=== PATIENT | female | born 1935 ===

== ENCOUNTER 2018-04-06 13:35 | Inpatient (IN) | payer MEDICARE ==
[2018-04-06 13:47] VITALS: BMI 29.2
[2018-04-06] MEDS ORDERED: Sodium Chloride 0.9% 1,000 ML IV ONE (14:16)
[2018-04-06] MEDS ORDERED: Iohexol 240 (50 ml) PO ONE (14:16)
[2018-04-06 14:27] LABS: BASO # 0.1 K/uL (0.0-0.2); BASO % 0.4 % (0.0-2.0); EOS # 0.2 K/uL (0.0-0.7); EOS % 1.5 % (0.0-4.0); HEMOGLOBIN 7.7 g/dL (11.0-16.0); LYMPH # 1.6 K/uL (1.0-4.3); LYMPH % 9.8 % (20.0-40.0); MEAN CELL VOLUME 95.1 fL (81.0-99.0); MEAN CORPUSCULAR HEMOGLOBIN 31.8 pg (27.0-31.0); MEAN CORPUSCULAR HGB CONC 33.4 g/dL (33.0-37.0); MEAN PLATELET VOLUME 7.8 fL (7.2-11.7); MONO # 0.7 K/uL (0.0-0.8); MONO % 4.4 % (0.0-10.0); NEUT # 13.6 K/uL (1.8-7.0); NEUT % 83.9 % (50.0-75.0); PLATELET COUNT 357 K/uL (130-400); RBC 2.42 Mil/uL (3.80-5.20); RED CELL DISTRIBUTION WIDTH 14.5 % (11.5-14.5); WHITE BLOOD COUNT 16.2 K/uL (4.8-10.8)
--- NOTE | 2018-04-06 14:27 | C.PDOC ---
History Of Present Illness Pt is an 83 y/o female, with history of colon cancer, abdominal hernia, and hypertension, presents to ED complaining of constant upper abdominal pain (mid- epigastric) for the past 3 days, associated with vomiting and diarrhea. States she has difficulty eating but the pain subsides when she lays down. Patient states she takes pepto bismol for the pain but no relief. Pt also states that her CEA was recently elevated (8.5) and that she was scheduled to have a CT scan at [facility] tomorrow as part of a cancer work up. Otherwise she denies any fever, dysuria, or other physical complaints. PMD: Dr. Lott Oncologist: Dr. Guthrie Time Seen by Provider: 04/06/18 14:02 Chief Complaint (Nursing): Abdominal Pain History Per: Patient History/Exam Limitations: no limitations Onset/Duration Of Symptoms: Days Current Symptoms Are (Timing): Still Present Past Medical History Reviewed: Historical Data, Nursing Documentation, Vital Signs Vital Signs: Last Vital Signs Temp 97.6 F 04/06/18 13:47 Pulse Resp 20 04/06/18 13:47 BP 144/54 L 04/06/18 13:47 Pulse Ox - Medical History PMH: HTN, Rheumatoid Arthritis Other PMH: colon cancer - [facility] Procedures CLOSED ENDOSCOPIC BIOPSY OF LARGE INTESTINE (09/08/12) ENDOSCOPIC BIOPSY OF RECTUM (09/08/12) Family History: States: Other Other Family History: cancer - Social History Hx Tobacco Use: No (Former smoker--quit 9 yrs ago) Hx Alcohol Use: No Hx Substance Use: No - Immunization History Hx Tetanus Toxoid Vaccination: Yes Hx Influenza Vaccination: Yes Hx Pneumococcal Vaccination: Yes Review Of Systems Except As Marked, All Systems Reviewed And Found Negative. Constitutional: Negative for: Fever Gastrointestinal: Positive for: Vomiting, Abdominal Pain (Upper), Diarrhea Genitourinary: Negative for: Dysuria Physical Exam - Physical Exam Appears: Well, Non-toxic, No Acute Distress Skin: Normal Color, Warm, Dry, No Rash Head: Atraumatic, Normacephalic Eye(s): bilateral: Normal Inspection, PERRL, EOMI Ear(s): Bilateral: Normal Nose: Normal Oral Mucosa: Moist Tongue: Normal Appearing Lips: Normal Appearing Gingiva: Normal Appearing Throat: Normal Neck: Normal, Normal ROM Lymphatic: Deferred Chest: Symmetrical Cardiovascular: Rhythm Regular, No Murmur Respiratory: Normal Breath Sounds, No Rales, No Rhonchi, No Wheezing Gastrointestinal/Abdominal: Soft, Tenderness (midepigastric area), No Guarding, No Rebound Rectal: Deferred Back: No CVA Tenderness Extremity: Normal ROM Extremity: Bilateral: Atraumatic, Normal Color And Temperature, Normal ROM Neurological/Psych: Oriented x3, Normal Speech Gait: Steady ED Course And Treatment - Laboratory Results Result Diagrams: 04/06/18 14:20 04/06/18 14:20 - CT Scan/US CT Abd/Pel Other Rad Studies (CT/US): Read By Radiologist, Radiology Report Reviewed CT/US Interpretation: FINDINGS: LUNG BASES: There is extensive scarring of the lung bases. LIVER: There are multiple low density cystic appearing masses within the liver including the right and left lobes with the largest in the left lobe measuring 2.8 cm in largest right lobe approximately 1.7 cm. GALLBLADDER AND BILE DUCTS: Findings suggest a small gallstone or sludge within the gallbladder. PANCREAS: Unremarkable. SPLEEN: Unremarkable. ADRENAL GLANDS: Unremarkable. KIDNEYS, URETERS, AND BLADDER: Left renal cyst approximately 4.6 cm.. There is no hydronephrosis or hydroureter. No urinary calculi are seen. Enlarged uterus with large calcified fibroid. STOMACH AND BOWEL: There is marked thickening of the wall of the stomach with inflammatory or neoplastic process a possibility. APPENDIX: No evidence of acute appendicitis on CT examination. PERITONEUM: No free fluid. No free air. LYMPH NODES: No lymphadenopathy is evident. VASCULATURE: No evidence of abdominal aortic aneurysm. BONES: Grade 1 anterolisthesis of the L4-L5 level lumbar spine. Diffuse advanced hypertrophic degenerative change. IMPRESSION: Scarring in the lower lungs. Multiple cystic masses suspected within the liver. Possible small gallstones or sludge within the gallbladder. Marked thickening of the wall of the stomach which may be inflammatory or neoplastic in nature.. Left renal cys t. Calcified fibroid uterus. Grade 1 anterolisthesis L4-L5 level lumbar spine. Medical Decision Making Medical Decision Making: Initial Impression: Undifferentiated abdominal pain Initial Plan: --CT Abd/Pel --Bloodwork --Omnipaque --Pepcid --IV Fluids --Zofran --Urinalysis Progress notes: CT of abd abnormal and several labs abnormal. Case d/w with Dr. Lott (PMD) and he recommends admission to hospitalist. Pt endorses to Dr. Pulliam. Disposition - Disposition Disposition: HOME/ ROUTINE Disposition Time: 18:38 Condition: FAIR - Clinical Impression Clinical Impression: Abdominal pain, Anemia, Vomiting - Scribe Statement The provider has reviewed the documentation as recorded by the Carmenibe Ioana Romero Provider Attestation: All medical record entries made by the Carmenibe were at my direction and personally dictated by me. I have reviewed the chart and agree that the record accurately reflects my personal performance of the history, physical exam, m edical decision making, and the department course for this patient. I have also personally directed, reviewed, and agree with the discharge instructions and disposition. Decision To Admit - Pt Status Changed To: Hospital Disposition Of: Inpatient - Admit Certification Admit to Inpatient:: After my assessment, the patient will require hospitalization for at least two midnights. This is because of the severity of symptoms shown, intensity of services needed, and/or the medical risk in this p atient being treated as an outpatient. - InPatient: Physician Admission Certification:: Patient will need evaluation by GI; patient will need monitoring and possible transfusion - . Bed Request Type: Regular Admitting Physician: Erwin Yarbrough Patient Diagnosis: Abdominal pain, Anemia, Vomiting
[2018-04-06] MEDS ORDERED: Sodium Chloride 0.9% 1,000 ML ONE (14:35)
[2018-04-06 14:41] LABS: ALBUMIN 3.1 g/dL (3.5-5.0); ALT/SGPT 29 U/L (9-52); AST/SGOT 29 U/L (14-36); BLOOD UREA NITROGEN 27 mg/dL (7-17); CALCIUM 8.6 mg/dl (8.6-10.4); GFR NON-AFRICAN AMERICAN 53; LIPASE 32 U/L (23-300)
[2018-04-06 14:47] LABS: INR 1.3; PROTHROMBIN TIME 14.6 SECONDS (9.7-12.2)
[2018-04-06] MEDS ORDERED: Iohexol 240 (50 ml) ONE (14:51)
[2018-04-06 15:12] LABS: LYMPHOCYTE 13 % (20-40); MONOCYTE 2 % (0-10); NEUTROPHIL 85 % (50-75); PLATELET ESTIMATE NORMAL (NORMAL); TOTAL CELLS COUNTED 100
[2018-04-06 15:14] LABS: ANISOCYTOSIS SLIGHT; HYPOCHROMIC SLIGHT; LARGE PLATELETS PRESENT; POLYCHROMIC SLIGHT; TOXIC GRANULATION PRESENT
[2018-04-06 15:15] LABS: GIANT PLATELETS PRESENT
[2018-04-06] MEDS ORDERED: Iodixanol 320 MG/ML 100 ML BOTTLE IV ONE (16:46)
[2018-04-06 16:55] LABS: SQUAMOUS EPITHIAL < 1 /hpf (0-5); URINE BILIRUBIN NEGATIVE (NEGATIVE); URINE BLOOD NEGATIVE (NEGATIVE); URINE CLARITY Clear (Clear); URINE COLOR Straw (YELLOW); URINE GLUCOSE (UA) NORMAL (Normal); URINE LEUKOCYTE ESTERASE NEG Leu/uL (Negative); URINE PROTEIN NEGATIVE (NEGATIVE); URINE UROBILINOGEN NORMAL mg/dL (0.2-1.0)
[2018-04-06] MEDS ORDERED: Morphine 4 MG/ML VIAL ONE (18:17)
--- NOTE | 2018-04-06 21:14 | CP.PCM.HP ---
<Jamir Huston - Last Filed: 04/07/18 03:37> History of Present Illness - History of Present Illness History of Present Illness: PGY-1 H&P for Dr Matute service cc: vomiting and epigastric pain HPI: Patient is a 83 year old female with pmhx of colon ca, HTN, Rheumatoid Arthritis, abdominal hernia that presents to the ED for nausea and vomiting, as well as for diarrhea and epigastric pain that started 3 days ago. Patient states she was going to [employer] 3 days ago in a car when she felt stomach discomfort, with burping, and vomited one time. Patient did not noticed any blood in the vomit. Patient took 1 oz of milk of magnesia at home, and state she later developed several episodes of brown, nonbloody diarrhea that lasted for 2 days. Patient states diarrhea stopped yesterday after taking peptobismol, and patient had a normal bowel movement today. Patient admits to increasing pain in right hand, due to hx of Rheumatoid arthritis. Patient says she has been taking 8 pills of Naproxen of 220mg each, every 8 hours for the past 2-3 weeks and has recently changed to taking 8 pills of Naproxen every 4 hours. Patient admits to chest pain in the middle of the sternum area. Patient denies fever, chills, headache, dizziness, changes in vision, palpations, shortness of breath, dysuria, hematuria, rash, sick contacts or loss of appetite. Patient admits to 4-5 lbs of weight loss in the past month. PMD: [facility] Heme/Onc: Dr Guthrie ALL: milk protein and other unspecified types of protein (rash, eczema, psoriasis) Pmhx: HTN, Colon CA, Abdominal hernia x 3, Rheumatoid arthritis, Macular degeneration Shx: Colon resection (2008) Meds: naproxen 8 pills x 4 hours daily, Mulitvitamins, natural/herbal medicine for RA Social history: Former smoker ( 1 pack/day x 56 years) 9 years ago, social drinker, denies drug use, lives alone and does not currently work fmhx: CVA, CO (father), aunt (Colon CA) Present on Admission - Present on Admission Any Indicators Present on Admission: No Review of Systems - Review of Systems All systems: reviewed and no additional remarkable complaints except Review of Systems: as mentioned in HPI Past Patient History - Past Social History Smoking Status: Former Smoker - CARDIAC Hx Hypertension: Yes - HEMATOLOGICAL/ONCOLOGICAL Other/Comment: colon Ca - MUSCULOSKELETAL/RHEUMATOLOGICAL Hx Rheumatoid Arthritis: Yes - PSYCHIATRIC Hx Substance Use: No - SURGICAL HISTORY Hx Surgeries: Yes Other/Comment: colectomy - ANESTHESIA Hx Anesthesia: Yes Hx Anesthesia Reactions: No Meds Allergies/Adverse Reactions: Allergies Allergy/AdvReac Type Severity Reaction Status Date / Time No Known Allergies Allergy Verified 09/08/12 09:33 Physical Exam - Constitutional Appears: Non-toxic, No Acute Distress - Head Exam Head Exam: ATRAUMATIC, NORMAL INSPECTION, NORMOCEPHALIC - Eye Exam Eye Exam: EOMI, Normal appearance, PERRL Pupil Exam: NORMAL ACCOMODATION Additional comments: conjuctival pallor bilaterally - ENT Exam ENT Exam: Mucous Membranes Moist, Normal Exam Additional comments: brown spots on posterior tongue noticed - Neck Exam Neck exam: Positive for: Full Rom, Normal Inspection. Negative for: Lymphadenopathy, Tenderness, Thyromegaly - Respiratory Exam Respiratory Exam: Clear to Auscultation Bilateral, NORMAL BREATHING PATTERN. absent: Rales, Rhonchi, Wheezes, Respiratory Distress - Cardiovascular Exam Cardiovascular Exam: REGULAR RHYTHM, +S1, +S2 - GI/Abdominal Exam GI & Abdominal Exam: Normal Bowel Sounds, Soft, Tenderness (epigastric area, right upper quadrant ). absent: Distended - Rectal Exam Rectal Exam: Hemorrhoids. absent: Black Stool, Bloody Stool, Fecal Impaction Additional comments: external hemorrhoids - Extremities Exam Extremities exam: Positive for: full ROM, normal capillary refill, normal inspection. Negative for: calf tenderness, pedal edema, tenderness - Back Exam Back exam: FULL ROM, NORMAL INSPECTION. absent: paraspinal tenderness, rash noted - Neurological Exam Neurological exam: Alert, CN II-XII Intact, Oriented x3 - Psychiatric Exam Psychiatric exam: Normal Affect, Normal Mood - Skin Skin Exam: Dry, Intact, Normal Color, Warm Results - Vital Signs Recent Vital Signs: Last Vital Signs Temp 97.9 F 04/06/18 18:00 Pulse 86 04/06/18 19:59 Resp 14 04/06/18 19:59 BP 142/59 L 04/06/18 19:59 Pulse Ox 97 04/06/18 19:59 - Labs Result Diagrams: 04/06/18 14:20 04/06/18 14:20 Labs: Laboratory Results - last 24 hr 04/06/18 04/06/18 04/06/18 14:20 14:20 14:20 WBC 16.2 H RBC 2.42 L Hgb 7.7 L Hct 23.0 L MCV 95.1 MCH 31.8 H MCHC 33.4 RDW 14.5 Plt Count 357 MPV 7.8 Neut % (Auto) 83.9 H Lymph % (Auto) 9.[address] [place] % (Auto) 4.4 Eos % (Auto) 1.5 Baso % (Auto) 0.4 Neut # (Auto) 13.6 H Lymph # (Auto) 1.6 [place] # (Auto) 0.7 Eos # (Auto) 0.2 Baso # (Auto) 0.1 Neutrophils % (Manual) 85 H Lymphocytes % (Manual) 13 L Monocytes % (Manual) 2 Toxic Granulation Present Platelet Estimate Normal Large Platelets Present Giant Platelets Present Polychromasia Slight Hypochromasia (manual) Slight Anisocytosis (manual) Slight Macrocytosis (manual) Slight PT 14.6 H INR 1.3 APTT 32 Sodium 129 L Potassium 3.6 Chloride 94 L Carbon Dioxide 26 Anion Gap 12 BUN 27 H Creatinine 1.0 Est GFR ( Amer) > 60 Est GFR (Non-Af Amer) 53 Random Glucose 117 H Calcium 8.6 Total Bilirubin 0.5 AST 29 ALT 29 Alkaline Phosphatase 65 Total Creatine Kinase 117 Troponin I 0.0150 Total Protein 6.1 L Albumin 3.1 L Globulin 3.0 Albumin/Globulin Ratio 1.0 Lipase 32 Urine Color Urine Clarity Urine pH Ur Specific [place] Urine Protein Urine Glucose (UA) Urine Ketones Urine Blood Urine Nitrate Urine Bilirubin Urine Urobilinogen Ur Leukocyte Esterase Urine WBC (Auto) Urine RBC (Auto) Ur Squamous Epith Cells Blood Type Antibody Screen 04/06/18 04/06/18 16:47 17:01 WBC RBC Hgb Hct MCV MCH MCHC RDW Plt Count MPV Neut % (Auto) Lymph % (Auto) [place] % (Auto) Eos % (Auto) Baso % (Auto) Neut # (Auto) Lymph # (Auto) [place] # (Auto) Eos # (Auto) Baso # (Auto) Neutrophils % (Manual) Lymphocytes % (Manual) Monocytes % (Manual) Toxic Granulation Platelet Estimate Large Platelets Giant Platelets Polychromasia Hypochromasia (manual) Anisocytosis (manual) Macrocytosis (manual) PT INR APTT Sodium Potassium Chloride Carbon Dioxide Anion Gap BUN Creatinine Est GFR ( Amer) Est GFR (Non-Af Amer) Random Glucose Calcium Total Bilirubin AST ALT Alkaline Phosphatase Total Creatine Kinase Troponin I Total Protein Albumin Globulin Albumin/Globulin Ratio Lipase Urine Color Straw Urine Clarity Clear Urine pH 6.0 Ur Specific [place] 1.006 Urine Protein Negative Urine Glucose (UA) Normal Urine Ketones Negative Urine Blood Negative Urine Nitrate Negative Urine Bilirubin Negative Urine Urobilinogen Normal Ur Leukocyte Esterase Neg Urine WBC (Auto) < 1 Urine RBC (Auto) 1 Ur Squamous Epith Cells < 1 Blood Type O POSITIVE Antibody Screen Negative Assessment & Plan - Assessment and Plan (Free Text) Plan: epigastric pain with N/V/D, r/o Upper GI bleed 2/2 NSAID use vs Malignancy - CT Abd and Pelvis PO and IV contrast: Thickening wall of stomach of inflammatory vs neoplastic cause, multiple cystic masses within liver, gallstones or sludge,scarring lower lungs, calcified fibroid uterus - Lipase negative - at ED: Famotidine 10mg IVP, morphine 5mg IVP, Ondasetron 4mg IVP - Occult blood x2 - f/u - GI consult - Dr Ayan Dowd - help is appreciated - Heme/Onc Consult Dr Guthrie - Protonix drip - Morphine 2mg IVP Q4hr PRN for severe pain - Zofran 4mg IVP PRN for nausea - NS @ 75mls/hr Acute Anemia, r/o Upper GI bleed due to NSAID use - Hb 7.7, baseline [address] Guthrie - Hematocrit 23.0 - 1 PRBC unit ordered - Heme/Onc Consult Dr Guthrie - help is appreciated - GI Consult Dr Dowd - help is appreciated - f/u Ferritin, Iron, TIBC, B12 - f/u AM labs Hx of colon CA - Heme/Onc consult Dr Guthrie - latoya is appreciated - CEA levels - f/u hx of RA, chronic pain right hand - no NSAIDS - morphine 2mg IVP Q4hr PRN for severe pain hx of HTN - does not take any meds at home - BP at ED: 149/69 - continue to monitor BP Prophylaxis - DVT: SCDs - NPO Plan discussed with Dr Juju Huston, PGY-1 - Date & Time Date: 04/06/18 Time: 20:00 <Flavio Matute - Last Filed: 04/07/18 06:43> Results - Vital Signs Recent Vital Signs: Last Vital Signs Temp 98.2 F 04/07/18 04:32 Pulse 65 04/07/18 04:32 Resp 20 04/07/18 04:32 BP 101/56 L 04/07/18 04:32 Pulse Ox 94 L 04/07/18 00:05 - Labs Result Diagrams: 04/06/18 14:20 04/06/18 14:20 Labs: Laboratory Results - last 24 hr 04/06/18 04/06/18 04/06/18 14:20 14:20 14:20 WBC 16.2 H RBC 2.42 L Hgb 7.7 L Hct 23.0 L MCV 95.1 MCH 31.8 H MCHC 33.4 RDW 14.5 Plt Count 357 MPV 7.8 Neut % (Auto) 83.9 H Lymph % (Auto) 9.[address] % (Auto) 4.4 Eos % (Auto) 1.5 Baso % (Auto) 0.4 Neut # (Auto) 13.6 H Lymph # (Auto) 1.6 [place] # (Auto) 0.7 Eos # (Auto) 0.2 Baso # (Auto) 0.1 Neutrophils % (Manual) 85 H Lymphocytes % (Manual) 13 L Monocytes % (Manual) 2 Toxic Granulation Present Platelet Estimate Normal Large Platelets Present Giant Platelets Present Polychromasia Slight Hypochromasia (manual) Slight Anisocytosis (manual) Slight Macrocytosis (manual) Slight PT 14.6 H INR 1.3 APTT 32 Sodium 129 L Potassium 3.6 Chloride 94 L Carbon Dioxide 26 Anion Gap 12 BUN 27 H Creatinine 1.0 Est GFR ( Amer) > 60 Est GFR (Non-Af Amer) 53 Random Glucose 117 H Calcium 8.6 Iron TIBC % Saturation Ferritin Total Bilirubin 0.5 AST 29 ALT 29 Alkaline Phosphatase 65 Total Creatine Kinase 117 Troponin I 0.0150 Total Protein 6.1 L Albumin 3.1 L Globulin 3.0 Albumin/Globulin Ratio 1.0 Lipase 32 Carcinoembryonic Ag Vitamin B12 Urine Color Urine Clarity Urine pH Ur Specific [place] Urine Protein Urine Glucose (UA) Urine Ketones Urine Blood Urine Nitrate Urine Bilirubin Urine Urobilinogen Ur Leukocyte Esterase Urine WBC (Auto) Urine RBC (Auto) Ur Squamous Epith Cells Stool Occult Blood Blood Type Antibody Screen 04/06/18 04/06/18 04/06/18 16:47 17:01 22:54 WBC RBC Hgb Hct MCV MCH MCHC RDW Plt Count MPV Neut % (Auto) Lymph % (Auto) [place] % (Auto) Eos % (Auto) Baso % (Auto) Neut # (Auto) Lymph # (Auto) [place] # (Auto) Eos # (Auto) Baso # (Auto) Neutrophils % (Manual) Lymphocytes % (Manual) Monocytes % (Manual) Toxic Granulation Platelet Estimate Large Platelets Giant Platelets Polychromasia Hypochromasia (manual) Anisocytosis (manual) Macrocytosis (manual) PT INR APTT Sodium Potassium Chloride Carbon Dioxide Anion Gap BUN Creatinine Est GFR ( Amer) Est GFR (Non-Af Amer) Random Glucose Calcium Iron TIBC % Saturation Ferritin 54.9 Total Bilirubin AST ALT Alkaline Phosphatase Total Creatine Kinase Troponin I Total Protein Albumin Globulin Albumin/Globulin Ratio Lipase Carcinoembryonic Ag 2.4 Vitamin B12 693 Urine Color Straw Urine Clarity Clear Urine pH 6.0 Ur Specific [place] 1.006 Urine Protein Negative Urine Glucose (UA) Normal Urine Ketones Negative Urine Blood Negative Urine Nitrate Negative Urine Bilirubin Negative Urine Urobilinogen Normal Ur Leukocyte Esterase Neg Urine WBC (Auto) < 1 Urine RBC (Auto) 1 Ur Squamous Epith Cells < 1 Stool Occult Blood Blood Type O POSITIVE Antibody Screen Negative 04/06/18 04/07/18 22:54 02:48 WBC RBC Hgb Hct MCV MCH MCHC RDW Plt Count MPV Neut % (Auto) Lymph % (Auto) [place] % (Auto) Eos % (Auto) Baso % (Auto) Neut # (Auto) Lymph # (Auto) [place] # (Auto) Eos # (Auto) Baso # (Auto) Neutrophils % (Manual) Lymphocytes % (Manual) Monocytes % (Manual) Toxic Granulation Platelet Estimate Large Platelets Giant Platelets Polychromasia Hypochromasia (manual) Anisocytosis (manual) Macrocytosis (manual) PT INR APTT Sodium Potassium Chloride Carbon Dioxide Anion Gap BUN Creatinine Est GFR ( Amer) Est GFR (Non-Af Amer) Random Glucose Calcium Iron 39 TIBC 241 L % Saturation 16 L Ferritin Total Bilirubin AST ALT Alkaline Phosphatase Total Creatine Kinase Troponin I Total Protein Albumin Globulin Albumin/Globulin Ratio Lipase Carcinoembryonic Ag Vitamin B12 Urine Color Urine Clarity Urine pH Ur Specific [place] Urine Protein Urine Glucose (UA) Urine Ketones Urine Blood Urine Nitrate Urine Bilirubin Urine Urobilinogen Ur Leukocyte Esterase Urine WBC (Auto) Urine RBC (Auto) Ur Squamous Epith Cells Stool Occult Blood Blood Type Antibody Screen Assessment & Plan - Date & Time Date: 04/07/18 (I have seen and examined the patient. I agree with the findings and plan of care as documented by Dr. Huston. Patient with epigastric pain, history of Colon CA. Acute anemia. Consult to heme/onc and GI. Hemodynamically stable. Check stool for OB. Symptomatic treatment. Monitor for acute changes.) Time: 06:42 Attending/Attestation - Attestation I have personally seen and examined this patient.: Yes I have fully participated in the care of the patient.: Yes I have reviewed all pertinent clinical information: Yes
[2018-04-06] MEDS ORDERED: Pantoprazole 80 MG in Sodium Chloride 0.9% 100 ML IVP SCH (22:00)
[2018-04-06 23:24] LABS: IRON 39 ug/dL (37-170)
[2018-04-06 23:34] LABS: % IRON SATURATION 16 (20-55); TOTAL IRON BINDING CAPACITY 241 ug/dL (250-450)
[2018-04-06 23:43] LABS: FERRITIN 54.9 ng/mL
[2018-04-07] MEDS ORDERED: Sodium Chloride 0.9% 1,000 ML IV SCH (07:00)
--- NOTE | 2018-04-07 08:43 | CP.PCM.PN ---
Subjective - Date & Time of Evaluation Date of Evaluation: 04/07/18 Time of Evaluation: 08:39 - Subjective Subjective: PGY-1 Genoveva Shea D.O. Medicine progress note for Dr. Musa's service: Patient was seen and examined this morning. She is feeling much better since admission. She denies N/V, diarrhea, and epigastric pain. Currently, her only co mplaints are bilateral hand and leg swelling and pain with flexion of her hands. She saw her construction engineer, Dr. Burgess, recently but was hesitant to start a DMARD. She is s/p 1u pRBC; however, patient does not recall receiving it. Objective - Vital Signs/Intake and Output Vital Signs (last 24 hours): Temp Pulse Resp BP Pulse Ox 98.3 F 68 18 108/56 L 98 04/07/18 07:00 04/07/18 07:00 04/07/18 07:00 04/07/18 07:00 04/07/18 07:00 Intake and Output: 04/07/18 04/07/18 06:59 18:59 Intake Total 650 Balance 650 - Medications Medications: Current Medications Pantoprazole Sodium 80 mg/ (Sodium Chloride) 100 mls @ 10 mls/hr IV .Q10H DEMETRIUS Sodium Chloride (Sodium Chloride 0.9%) 1,000 mls @ 75 mls/hr IV .[id number] DEMETRIUS Morphine Sulfate (Morphine) 2 mg IVP Q4 PRN PRN Reason: Pain, severe (8-10) Last Admin: 04/06/18 23:00 Dose: 2 mg Ondansetron HCl (Zofran Inj) 4 mg IVP Q6 PRN PRN Reason: Nausea/Vomiting - Labs Labs: 04/06/18 14:20 04/06/18 14:20 PT 14.6 SECONDS (9.7-12.2) H 04/06/18 14:20 INR 1.3 04/06/18 14:20 APTT 32 SECONDS (21-34) 04/06/18 14:20 - Constitutional Appears: Non-toxic, No Acute Distress - Head Exam Head Exam: ATRAUMATIC, NORMAL INSPECTION - Eye Exam Eye Exam: EOMI, Normal appearance, PERRL - ENT Exam ENT Exam: Mucous Membranes Moist - Neck Exam Neck Exam: Normal Inspection - Respiratory Exam Respiratory Exam: Rales (b/l lower lung melendez), NORMAL BREATHING PATTERN. absent: Accessory Muscle Use, Respiratory Distress - Cardiovascular Exam Cardiovascular Exam: REGULAR RHYTHM, +S1, +S2, Murmur (holosystolic) - GI/Abdominal Exam GI & Abdominal Exam: Soft. absent: Distended, Tenderness - Rectal Exam Rectal Exam: Deferred - Extremities Exam Extremities Exam: Pedal Edema (2+ b/l). absent: Tenderness - Neurological Exam Neurological Exam: Alert, Awake, CN II-XII Intact, Oriented x3 - Psychiatric Exam Psychiatric exam: Normal Affect, Normal Mood - Skin Skin Exam: Dry, Intact, Normal Color, Pallor (conjunctival), Warm Assessment and Plan - Assessment and Plan (Free Text) Assessment: Patient is an 83 yo female with a history of colon CA and RA who presented with N/V/D x 3 days. Patient reported taking an increasing amount of Naproxen for her RA over the past few weeks. Patient found to be acutely anemic on admission. She received 1 u pRBC without response. She is scheduled for EGD tomorrow 04/08. Plan: Epigastic pain with nausea, vomiting, diarrhea, improving- suspect upper GI bleed 2/2 to NSAID use, r/o malignancy (h/o colon CA) - CT A/P: There is fairly significant wall thickening of the stomach. Findings could represent a gastritis or possibly gastric carcinoma. There is also small hiatal hernia with wall thickening of the distal esophagus that could all represent inflammation or neoplasia. Follow-up endoscopy recommended. Mild hepatomegaly with fatty infiltration. Numerous hepatic cysts. Qu estionable cholelithiasis.. Bilateral renal cyst. Mild wall thickening the descending and distal transverse colon with scattered colonic diverticula. Findings could be secondary to incomplete distention peristalsis, unopacified stool however and possibly muscular hypertrophy however the possibility of chronic inflammation not excluded. Clinical correlation recommended. Enlarged bulky fibroid uterus. Left adnexal cyst for which a pelvic ultrasound follow-up recommended. Paraseptal emphysematous changes with questionable concomitant fibrosis both lung bases. - Lipase wnl - FOBT negative x2 - Zofran 4 mg IV Q6H PRN - Protonix drip - Morphine 2 mg IV Q4H PRN - Discontinue IVF (LE edema, lung crackles) - Clear liquids - NPO after midnight for EGD tomorrow 04/08 - GI consulted ([place]) Anemia, acute- suspect upper GI bleed 2/2 to NSAID use, r/o malignancy - Hgb 7.7->7.6 s/p 1u pRBC - F/u CBC at 1PM- transfuse another unit if Hgb<8 - Iron, ferritin wnl - TIBC low (241), % sat low (16) - B12 wnl Holosystolic murmur- new to patient, also with b/l LE edema - Echo pending Hyponatremia, improving - Monitor BMP - Discontinue IVF Rheumatoid arthritis - Avoid NSAIDs - Morphine 2 mg IV Q4H PRN - Consider DMARD - Rheumatology consulted ([facility]) H/o colon CA - CEA wnl (2.4) - Hem/onc consulted ([place]) Ppx: VTE: SCDs, chemical anticoag contraindicated due to acute anemia GI: PTX drip Code status: full code Case was discussed with attending, Dr. Musa.
[2018-04-07 09:03] LABS: BASO # 0.1 K/uL (0.0-0.2); BASO % 0.5 % (0.0-2.0); EOS # 0.5 K/uL (0.0-0.7); EOS % 4.6 % (0.0-4.0); HEMOGLOBIN 7.6 g/dL (11.0-16.0); LYMPH # 1.4 K/uL (1.0-4.3); LYMPH % 13.3 % (20.0-40.0); MEAN CELL VOLUME 93.8 fL (81.0-99.0); MEAN CORPUSCULAR HEMOGLOBIN 32.3 pg (27.0-31.0); MEAN CORPUSCULAR HGB CONC 34.4 g/dL (33.0-37.0); MEAN PLATELET VOLUME 8.1 fL (7.2-11.7); MONO # 0.7 K/uL (0.0-0.8); MONO % 6.9 % (0.0-10.0); NEUT # 7.8 K/uL (1.8-7.0); NEUT % 74.7 % (50.0-75.0); NRBC % 0.1 % (0.0-2.0); RBC 2.36 Mil/uL (3.80-5.20); RED CELL DISTRIBUTION WIDTH 14.8 % (11.5-14.5); WHITE BLOOD COUNT 10.4 K/uL (4.8-10.8)
[2018-04-07 09:24] LABS: ALBUMIN 2.5 g/dL (3.5-5.0); ALT/SGPT 27 U/L (9-52); AST/SGOT 20 U/L (14-36); BLOOD UREA NITROGEN 18 mg/dL (7-17); GFR NON-AFRICAN AMERICAN 53
--- NOTE | 2018-04-07 09:39 | RAD ---
Date of service: 04/06/2018 HISTORY: High WBC r/o infiltrate COMPARISON: Abdomen pelvis CT 04/06/2018, 3 p.m.. TECHNIQUE: Chest PA and lateral FINDINGS: LUNGS: Extensive bilateral pulmonary changes are identified. Diffuse reticular nodular changes bilaterally suspicious for interstitial pulmonary disease, apparently chronic in nature as compared prior lung base sections from abdomen pelvis CT 04/06/2018. PLEURA: No significant pleural effusion identified. No pneumothorax apparent. CARDIOVASCULAR: No aortic atherosclerotic calcification present. Cardiac silhouette is obscured by pulmonary disease at the left base. No pulmonary vascular congestion. OSSEOUS STRUCTURES: No significant abnormalities. VISUALIZED UPPER ABDOMEN: Normal. OTHER FINDINGS: None. IMPRESSION: Chronic interstitial lung disease identified bilaterally without definite alveolitis identified on acute basis. No pleural effusion or pneumothorax appreciable.
--- NOTE | 2018-04-07 11:23 | CT ---
Date of service: 04/06/2018 PROCEDURE: CT Abdomen and Pelvis with contrast HISTORY: Midepigastric pain N/V Hx colon CA COMPARISON: No prior study available for comparison.. TECHNIQUE: Contiguous helical/transaxial sections of the abdomen. Pelvis performed in standard fashion following oral and intravenous injection of approximately 100 cc Visipaque 320 contrast material. Additional 2D sagittal and coronal reformats generated. Radiation dose: Total exam DLP = 547.51 mGy-cm. This CT exam was performed using one or more of the following dose reduction techniques: Automated exposure control, adjustment of the mA and/or kV according to patient size, and/or use of iterative reconstruction technique. FINDINGS: LOWER THORAX: Heart size is within range of normal. No significant pericardial effusion. There are scarring and peripheral cystic honeycombing changes seen both lung bases. Findings may represent paraseptal emphysema and/or interstitial fibrosis of with areas of irregular scarring. No effusion or basilar pneumothorax. Tiny hiatal hernia. There is wall thickening of the distal esophagus that could be due to protrusion gastric mucosa however esophagitis or other intrinsic/invasive wall lesion not excluded. Recommend follow-up endoscopy. LIVER: Enlarged measuring the liver is mildly enlarged measuring over 19 cm in CC dimension. Mild diffuse fatty hepatic infiltration. Multiple varying sized rounded low-attenuation lesions are seen scattered throughout the hepatic parenchyma the largest of which are compatible with hepatic cysts. Note that some of the smaller lesions are too small to characterize though may also represent a cyst or possibly hemangiomas. Follow-up at interval recommended given the patient's history of colon carcinoma the to exclude the possibility of a small early metastatic lesions.. If indicated, PET-CT scan could be performed. No gross intrahepatic biliary ductal dilatation. GALLBLADDER AND BILE DUCTS: Gallbladder is physiologically distended. Questionable intraluminal gallbladder calculi common bile duct is slightly dilated. PANCREAS: Pancreas appears slightly atrophic and fatty replaced. No obvious pancreatic masses collections or calcifications.. SPLEEN: Spleen exhibits normal size and attenuation pattern without mass collection or calcification.. ADRENALS: No adrenal lesions are identified.. KIDNEYS AND URETERS: Kidneys demonstrate symmetric nephrograms. No evidence of nephrolithiasis or hydronephrosis.. There are several low-attenuation lesions seen scattered throughout the right kidney which are too small to characterize though probably represent renal cysts. Follow-up ultrasound could confirm. There is a large partially exophytic cyst seen arising from the posterior aspect lower pole left kidney measuring approximately 4.7 cm. VASCULATURE: Unremarkable. No aortic aneurysm. Mild aortic atherosclerotic calcification or mural plaque present. BOWEL: Evaluation of the bowel is limited due to incomplete opacification. There is wall thickening of the stomach particularly prominent city constable in the mid and distal body. Follow-up endoscopy is recommended to exclude the possibility of a gastritis or gastric carcinoma.. The visualized loops of small bowel exhibit normal contour and caliber. No evidence of acute mechanical small bowel obstruction. Oral contrast material is seen within the large bowel extending to the level of the distal sigmoid. Few scattered colonic diverticula noted along the descending colon. Slight irregular wall thickening of the distal transverse and descending colon noted as well. Rule out chronic on APPENDIX: Suspect postoperative appendectomy changes. Clinical correlation with history recommended. PERITONEUM: Unremarkable. No free fluid. No free air. LYMPH NODES: Unremarkable. No enlarged lymph nodes. BLADDER: Urinary bladder physiologically distended. No evidence of intraluminal urinary bladder calculi. REPRODUCTIVE: Uterus is enlarged with a large midbody confluent area of granular calcifications consistent with calcified fibroid. There is also a left-sided adnexal cyst that measures approximately 2.6 x 2.2 cm. Follow-up pelvic ultrasound could be performed for further evaluation.. Findings could be secondary to incomplete distention and peristalsis as well as unopacified bowel however possibility of muscular hypertrophy due to chronic inflammation not excluded. Clinical correlation recommended. BONES: Multilevel degenerative spondylosis of the lower thoracic and lumbar spine. Slight anterior subluxation L4 over L5. No acute compression fractures no retropulsed fragments. OTHER FINDINGS: None. IMPRESSION: There is fairly significant wall thickening of the stomach. Findings could represent a gastritis or possibly gastric carcinoma. There is also small hiatal hernia with wall thickening of the distal esophagus that could all represent inflammation or neoplasia. Follow-up endoscopy recommended. Mild hepatomegaly with fatty infiltration. Numerous hepatic cysts. Questionable cholelithiasis.. Bilateral renal cyst. Mild wall thickening the descending and distal transverse colon with scattered colonic diverticula. Findings could be secondary to incomplete distention peristalsis, unopacified stool however and possibly muscular hypertrophy however the possibility of chronic inflammation not excluded. Clinical correlation recommended. Enlarged bulky fibroid uterus. Left adnexal cyst for which a pelvic ultrasound follow-up recommended... Paraseptal emphysematous changes with questionable concomitant fibrosis both lung bases See above discussion for additional details and findings. This report was placed in PA review folder for follow up.
[2018-04-07] MEDS: Pantoprazole 80 MG in Sodium Chloride 0.9% 100 ML IV SCH ×2 (12:25→20:48)
--- NOTE | 2018-04-07 15:34 | CP.PCM.CON ---
History of Present Illness - History of Present Illness History of Present Illness: History from the patient and the chart PI: Patient is a 83 year old female with pmhx of colon ca ( Stage I colon cancer) 2007, HTN, Rheumatoid Arthritis, abdominal hernia that presents to the ED for nausea and vomiting, as well as for diarrhea and epigastric pain that started 3 days ago. Patient states she was going to [employer] 3 days ago in a car when she felt stomach discomfort, with burping, and vomited one time. Patie nt did not noticed any blood in the vomit. Patient took 1 oz of milk of magnesia at home, and state she later developed several episodes of brown, non bloody diarrhea that lasted for 2 days. Patient states diarrhea stopped yesterday after taking peptobismol, and patient had a normal bowel movement today. Patient admits to increasing pain in right hand, due to hx of Rheumatoid arthritis. Patient says she has been taking 8 pills of Naproxen of 220mg each, every 8 hours for the past 2-3 weeks and has recently changed to taking 8 pills of Naproxen every 4 hours. Patient admits to chest pain in the middle of the sternum area. Patient denies fever, chills, headache, dizziness, changes in vision, palpations, shortness of breath, dysuria, hematuria, rash, sick contacts or loss of appetite. Patient admits to 4-5 lbs of weight loss in the past month and fatigue with NIELSEN for the [ast two weeks. PMD: Oren Heme/Onc: Palathingal ALL: milk protein and other unspecified types of protein (rash, eczema, psoriasis) Pmhx: HTN, Colon CA, Abdominal hernia x 3, Rheumatoid arthritis, Macular degeneration Shx: Colon resection (2008) Meds: naproxen 8 pills x 4 hours daily, Mulitvitamins, natural/herbal medicine for RA Social history: Former smoker ( 1 pack/day x 56 years) 9 years ago, social miquel spear, denies drug use, lives alone and does not currently work fmhx: CVA, MS (father), aunt (Colon CA) Past Patient History - Past Medical History & Family History Past Medical History?: Yes - Past Social History Smoking Status: Former Smoker - CARDIAC Hx Hypertension: Yes - PULMONARY Hx Respiratory Disorders: No - NEUROLOGICAL Hx Neurological Disorder: No - HEENT Hx HEENT Problems: Yes Hx Deafness: (hard of hearing bilateral ears) - RENAL Hx Chronic Kidney Disease: No - ENDOCRINE/METABOLIC Hx Endocrine Disorders: No - HEMATOLOGICAL/ONCOLOGICAL Other/Comment: colon Ca - INTEGUMENTARY Hx Dermatological Problems: No - MUSCULOSKELETAL/RHEUMATOLOGICAL Hx Rheumatoid Arthritis: Yes - GASTROINTESTINAL Hx Gastrointestinal Disorders: No - GENITOURINARY/GYNECOLOGICAL Hx Genitourinary Disorders: No - PSYCHIATRIC Hx Substance Use: No - SURGICAL HISTORY Hx Surgeries: Yes Other/Comment: colectomy - ANESTHESIA Hx Anesthesia: Yes Hx Anesthesia Reactions: No Meds Allergies/Adverse Reactions: Allergies Allergy/AdvReac Type Severity Reaction Status Date / Time No Known Allergies Allergy Verified 09/08/12 09:33 - Medications Medications: Current Medications Pantoprazole Sodium 80 mg/ (Sodium Chloride) 100 mls @ 10 mls/hr IV .Q10H [facility] Last Admin: 04/07/18 12:25 Dose: 10 mls/hr Sodium Chloride (Sodium Chloride 0.9%) 1,000 mls @ 75 mls/hr IV .[id number] [facility] Last Admin: 04/07/18 08:53 Dose: 75 mls/hr Morphine Sulfate (Morphine) 2 mg IVP Q4 PRN PRN Reason: Pain, severe (8-10) Last Admin: 04/06/18 23:00 Dose: 2 mg Ondansetron HCl (Zofran Inj) 4 mg IVP Q6 PRN PRN Reason: Nausea/Vomiting Results - Vital Signs Recent Vital Signs: Last Vital Signs Temp 98.3 F 04/07/18 07:00 Pulse 68 04/07/18 07:00 Resp 18 04/07/18 07:00 BP 108/56 L 04/07/18 07:00 Pulse Ox 98 04/07/18 07:00 - Labs Result Diagrams: 04/07/18 17:33 04/07/18 08:49 Labs: Laboratory Results - last 24 hr 04/06/18 04/06/18 04/06/18 16:47 17:01 22:54 WBC RBC Hgb Hct MCV MCH MCHC RDW Plt Count MPV Neut % (Auto) Lymph % (Auto) Colbert % (Auto) Eos % (Auto) Baso % (Auto) Neut # (Auto) Lymph # (Auto) Colbert # (Auto) Eos # (Auto) Baso # (Auto) Sodium Potassium Chloride Carbon Dioxide Anion Gap BUN Creatinine Est GFR ( Amer) Est GFR (Non-Af Amer) Random Glucose Calcium Phosphorus Magnesium Iron TIBC % Saturation Ferritin 54.9 Total Bilirubin AST ALT Alkaline Phosphatase Total Protein Albumin Globulin Albumin/Globulin Ratio Carcinoembryonic Ag 2.4 Vitamin B12 693 Urine Color Straw Urine Clarity Clear Urine pH 6.0 Ur Specific [place] 1.006 Urine Protein Negative Urine Glucose (UA) Normal Urine Ketones Negative Urine Blood Negative Urine Nitrate Negative Urine Bilirubin Negative Urine Urobilinogen Normal Ur Leukocyte Esterase Neg Urine WBC (Auto) < 1 Urine RBC (Auto) 1 Ur Squamous Epith Cells < 1 Stool Occult Blood Blood Type O POSITIVE Antibody Screen Negative 04/06/18 04/07/18 04/07/18 22:54 02:48 08:49 WBC 10.4 RBC 2.36 L Hgb 7.6 L Hct 22.2 L MCV 93.8 MCH 32.3 H MCHC 34.4 RDW 14.8 H Plt Count 305 MPV 8.1 Neut % (Auto) 74.7 Lymph % (Auto) 13.3 L Colbert % (Auto) 6.9 Eos % (Auto) 4.6 H Baso % (Auto) 0.5 Neut # (Auto) 7.8 H Lymph # (Auto) 1.4 Colbert # (Auto) 0.7 Eos # (Auto) 0.5 Baso # (Auto) 0.1 Sodium Potassium Chloride Carbon Dioxide Anion Gap BUN Creatinine Est GFR ( Amer) Est GFR (Non-Af Amer) Random Glucose Calcium Phosphorus Magnesium Iron 39 TIBC 241 L % Saturation 16 L Ferritin Total Bilirubin AST ALT Alkaline Phosphatase Total Protein Albumin Globulin Albumin/Globulin Ratio Carcinoembryonic Ag Vitamin B12 Urine Color Urine Clarity Urine pH Ur Specific [place] Urine Protein Urine Glucose (UA) Urine Ketones Urine Blood Urine Nitrate Urine Bilirubin Urine Urobilinogen Ur Leukocyte Esterase Urine WBC (Auto) Urine RBC (Auto) Ur Squamous Epith Cells Stool Occult Blood Blood Type Antibody Screen 04/07/18 08:49 WBC RBC Hgb Hct MCV MCH MCHC RDW Plt Count MPV Neut % (Auto) Lymph % (Auto) Colbert % (Auto) Eos % (Auto) Baso % (Auto) Neut # (Auto) Lymph # (Auto) Colbert # (Auto) Eos # (Auto) Baso # (Auto) Sodium 131 L Potassium 3.9 Chloride 101 Carbon Dioxide 24 Anion Gap 10 BUN 18 H Creatinine 1.0 Est GFR ( Amer) > 60 Est GFR (Non-Af Amer) 53 Random Glucose 80 Calcium 8.0 L Phosphorus 2.5 Magnesium 2.2 Iron TIBC % Saturation Ferritin Total Bilirubin 0.3 AST 20 ALT 27 Alkaline Phosphatase 54 Total Protein 5.0 L Albumin 2.5 L Globulin 2.6 Albumin/Globulin Ratio 1.0 Carcinoembryonic Ag Vitamin B12 Urine Color Urine Clarity Urine pH Ur Specific [place]ason Urine Protein Urine Glucose (UA) Urine Ketones Urine Blood Urine Nitrate Urine Bilirubin Urine Urobilinogen Ur Leukocyte Esterase Urine WBC (Auto) Urine RBC (Auto) Ur Squamous Epith Cells Stool Occult Blood Blood Type Antibody Screen Assessment & Plan (1) Anemia Assessment and Plan: 83 yo woman with history of colon cancer, Stage I, FAZAL, admitted with vomiting, tarry stool, severe fatigue for the past 2-3 weeks, abdominal pain, found to have severe anemia. Her baseline hemoglobin is 14, so would recommend transfusing 2-3 units of blood, especially if the concern is for ongoing bleeding Status: Acute
--- NOTE | 2018-04-07 15:36 | CP.PCM.CON ---
History of Present Illness - History of Present Illness History of Present Illness: GI Service Consult cc: anemia, epigastric pain HPI: 83 yr old woman admitted with epigastric pain, NSAID use, vomiting, Hgb 7- unchanged after transfusion [address]- abnormal thickening of stomach + liver lesions (cysts, hemangiomas). H/O colon cancer s/p resection 9 years ago, followed by Dr Guthrie. Last colonoscopy 5 years ago. CEA rising and was to have PET today Review of Systems - Constitutional Constitutional: absent: Fever - EENT Eyes: absent: Change in Vision - Cardiovascular Cardiovascular: Chest Pain - Respiratory Respiratory: Dyspnea. absent: Cough - Gastrointestinal Gastrointestinal: Abdominal Pain. absent: Melena - Genitourinary Genitourinary: absent: Change in Urinary Stream - Musculoskeletal Musculoskeletal: Back Pain, Joint Swelling - Integumentary Integumentary: absent: Jaundice - Neurological Neurological: absent: Abnormal Hearing - Psychiatric Psychiatric: absent: Behavioral Changes, Depression Past Patient History - Past Medical History & Family History Past Medical History?: Yes - Past Social History Smoking Status: Former Smoker - CARDIAC Hx Hypertension: Yes - PULMONARY Hx Respiratory Disorders: No - NEUROLOGICAL Hx Neurological Disorder: No - HEENT Hx HEENT Problems: Yes Hx Deafness: (hard of hearing bilateral ears) - RENAL Hx Chronic Kidney Disease: No - ENDOCRINE/METABOLIC Hx Endocrine Disorders: No - HEMATOLOGICAL/ONCOLOGICAL Other/Comment: colon Ca - INTEGUMENTARY Hx Dermatological Problems: No - MUSCULOSKELETAL/RHEUMATOLOGICAL Hx Rheumatoid Arthritis: Yes - GASTROINTESTINAL Hx Gastrointestinal Disorders: No - GENITOURINARY/GYNECOLOGICAL Hx Genitourinary Disorders: No - PSYCHIATRIC Hx Substance Use: No - SURGICAL HISTORY Hx Surgeries: Yes Other/Comment: colectomy - ANESTHESIA Hx Anesthesia: Yes Hx Anesthesia Reactions: No Meds Allergies/Adverse Reactions: Allergies Allergy/AdvReac Type Severity Reaction Status Date / Time No Known Allergies Allergy Verified 09/08/12 09:33 - Medications Medications: Current Medications Pantoprazole Sodium 80 mg/ (Sodium Chloride) 100 mls @ 10 mls/hr IV .Q10H [facility] Last Admin: 04/07/18 12:25 Dose: 10 mls/hr Sodium Chloride (Sodium Chloride 0.9%) 1,000 mls @ 75 mls/hr IV .[id number] [facility] Last Admin: 04/07/18 08:53 Dose: 75 mls/hr Morphine Sulfate (Morphine) 2 mg IVP Q4 PRN PRN Reason: Pain, severe (8-10) Last Admin: 04/06/18 23:00 Dose: 2 mg Ondansetron HCl (Zofran Inj) 4 mg IVP Q6 PRN PRN Reason: Nausea/Vomiting Physical Exam - Constitutional Appears: Well, No Acute Distress - Head Exam Head Exam: NORMOCEPHALIC - Eye Exam Eye Exam: absent: Scleral icterus - ENT Exam ENT Exam: Normal Exam - Neck Exam Neck exam: Positive for: Normal Inspection - Respiratory Exam Respiratory Exam: Clear to Auscultation Bilateral - Cardiovascular Exam Cardiovascular Exam: REGULAR RHYTHM - GI/Abdominal Exam GI & Abdominal Exam: Soft. absent: Mass, Organomegaly, Tenderness - Rectal Exam Rectal Exam: Deferred - Extremities Exam Additional comments: Right arm soft cast, swelling of hands - Back Exam Back exam: NORMAL INSPECTION - Neurological Exam Neurological exam: Alert, Oriented x3 - Psychiatric Exam Psychiatric exam: Normal Affect, Normal Mood Results - Vital Signs Recent Vital Signs: Last Vital Signs Temp 98.3 F 04/07/18 07:00 Pulse 68 04/07/18 07:00 Resp 18 04/07/18 07:00 BP 108/56 L 04/07/18 07:00 Pulse Ox 98 04/07/18 07:00 - Labs Result Diagrams: 04/07/18 08:49 04/07/18 08:49 Labs: Laboratory Results - last 24 hr 04/06/18 04/06/18 04/06/18 16:47 17:01 22:54 WBC RBC Hgb Hct MCV MCH MCHC RDW Plt Count MPV Neut % (Auto) Lymph % (Auto) Colbert % (Auto) Eos % (Auto) Baso % (Auto) Neut # (Auto) Lymph # (Auto) Colbert # (Auto) Eos # (Auto) Baso # (Auto) Sodium Potassium Chloride Carbon Dioxide Anion Gap BUN Creatinine Est GFR ( Amer) Est GFR (Non-Af Amer) Random Glucose Calcium Phosphorus Magnesium Iron TIBC % Saturation Ferritin 54.9 Total Bilirubin AST ALT Alkaline Phosphatase Total Protein Albumin Globulin Albumin/Globulin Ratio Carcinoembryonic Ag 2.4 Vitamin B12 693 Urine Color Straw Urine Clarity Clear Urine pH 6.0 Ur Specific [place] 1.006 Urine Protein Negative Urine Glucose (UA) Normal Urine Ketones Negative Urine Blood Negative Urine Nitrate Negative Urine Bilirubin Negative Urine Urobilinogen Normal Ur Leukocyte Esterase Neg Urine WBC (Auto) < 1 Urine RBC (Auto) 1 Ur Squamous Epith Cells < 1 Stool Occult Blood Blood Type O POSITIVE Antibody Screen Negative 04/06/18 04/07/18 04/07/18 22:54 02:48 08:49 WBC 10.4 RBC 2.36 L Hgb 7.6 L Hct 22.2 L MCV 93.8 MCH 32.3 H MCHC 34.4 RDW 14.8 H Plt Count 305 MPV 8.1 Neut % (Auto) 74.7 Lymph % (Auto) 13.3 L Colbert % (Auto) 6.9 Eos % (Auto) 4.6 H Baso % (Auto) 0.5 Neut # (Auto) 7.8 H Lymph # (Auto) 1.4 Colbert # (Auto) 0.7 Eos # (Auto) 0.5 Baso # (Auto) 0.1 Sodium Potassium Chloride Carbon Dioxide Anion Gap BUN Creatinine Est GFR ( Amer) Est GFR (Non-Af Amer) Random Glucose Calcium Phosphorus Magnesium Iron 39 TIBC 241 L % Saturation 16 L Ferritin Total Bilirubin AST ALT Alkaline Phosphatase Total Protein Albumin Globulin Albumin/Globulin Ratio Carcinoembryonic Ag Vitamin B12 Urine Color Urine Clarity Urine pH Ur Specific [place] Urine Protein Urine Glucose (UA) Urine Ketones Urine Blood Urine Nitrate Urine Bilirubin Urine Urobilinogen Ur Leukocyte Esterase Urine WBC (Auto) Urine RBC (Auto) Ur Squamous Epith Cells Stool Occult Blood Blood Type Antibody Screen 04/07/18 08:49 WBC RBC Hgb Hct MCV MCH MCHC RDW Plt Count MPV Neut % (Auto) Lymph % (Auto) Colbert % (Auto) Eos % (Auto) Baso % (Auto) Neut # (Auto) Lymph # (Auto) Colbert # (Auto) Eos # (Auto) Baso # (Auto) Sodium 131 L Potassium 3.9 Chloride 101 Carbon Dioxide 24 Anion Gap 10 BUN 18 H Creatinine 1.0 Est GFR ( Amer) > 60 Est GFR (Non-Af Amer) 53 Random Glucose 80 Calcium 8.0 L Phosphorus 2.5 Magnesium 2.2 Iron TIBC % Saturation Ferritin Total Bilirubin 0.3 AST 20 ALT 27 Alkaline Phosphatase 54 Total Protein 5.0 L Albumin 2.5 L Globulin 2.6 Albumin/Globulin Ratio 1.0 Carcinoembryonic Ag Vitamin B12 Urine Color Urine Clarity Urine pH Ur Specific [place] Urine Protein Urine Glucose (UA) Urine Ketones Urine Blood Urine Nitrate Urine Bilirubin Urine Urobilinogen Ur Leukocyte Esterase Urine WBC (Auto) Urine RBC (Auto) Ur Squamous Epith Cells Stool Occult Blood Blood Type Antibody Screen Assessment & Plan - Assessment and Plan (Free Text) Assessment: Abdominal pain/gastritis- NSAID use, abnl stomach on CT- Rec: PPI, EGD H/O Colon CA- rising CEA. Followed by Dr Guthrie. No obvious metastatic dis on CT. Pt to have outpt PET previously arranged by Dr Guthrie Anemia- normocytic + positive stool OB- recommend EGD - Date & Time Date: 04/07/18 Time: 15:40
[2018-04-07 17:41] LABS: BASO % 0.5 % (0.0-2.0); EOS # 0.4 K/uL (0.0-0.7); EOS % 4.1 % (0.0-4.0); HEMOGLOBIN 7.7 g/dL (11.0-16.0); LYMPH # 1.4 K/uL (1.0-4.3); LYMPH % 13.4 % (20.0-40.0); MEAN CELL VOLUME 92.6 fL (81.0-99.0); MEAN CORPUSCULAR HEMOGLOBIN 31.3 pg (27.0-31.0); MEAN CORPUSCULAR HGB CONC 33.8 g/dL (33.0-37.0); MEAN PLATELET VOLUME 7.8 fL (7.2-11.7); MONO # 0.7 K/uL (0.0-0.8); MONO % 6.6 % (0.0-10.0); NEUT # 8.1 K/uL (1.8-7.0); NEUT % 75.4 % (50.0-75.0); NRBC % 0.1 % (0.0-2.0); RBC 2.47 Mil/uL (3.80-5.20); RED CELL DISTRIBUTION WIDTH 14.9 % (11.5-14.5); WHITE BLOOD COUNT 10.7 K/uL (4.8-10.8)
[2018-04-08] MEDS: Pantoprazole 80 MG in Sodium Chloride 0.9% 100 ML IV SCH ×2 (05:35→17:17)
--- NOTE | 2018-04-08 07:37 | CP.PCM.PN ---
Subjective - Date & Time of Evaluation Date of Evaluation: 04/08/18 Time of Evaluation: 07:36 - Subjective Subjective: PGY-1 Genoveva Shea D.O. Medicine progress note for Dr. Musa's service: Patient was seen and examined this morning. Her nephew and his were at bedside. Patient states she is feeling well. Denies abdominal pain. She does admit to black stools; Denies diarrhea or constipation. She is NPO for EGD today. Reiterated to patient and family to avoid NSAIDS. Objective - Vital Signs/Intake and Output Vital Signs (last 24 hours): Temp Pulse Resp BP Pulse Ox 97.9 F 77 20 140/70 95 04/08/18 04:56 04/08/18 04:56 04/08/18 04:56 04/08/18 04:56 04/08/18 00:29 Intake and Output: 04/08/18 04/08/18 06:59 18:59 Intake Total 1085 Output Total 1 Balance 1084 - Medications Medications: Current Medications Pantoprazole Sodium 80 mg/ (Sodium Chloride) 100 mls @ 10 mls/hr IV .Q10H [facility] Last Admin: 04/08/18 05:35 Dose: Not Given Morphine Sulfate (Morphine) 2 mg IVP Q4 PRN PRN Reason: Pain, severe (8-10) Last Admin: 04/08/18 00:20 Dose: 2 mg Ondansetron HCl (Zofran Inj) 4 mg IVP Q6 PRN PRN Reason: Nausea/Vomiting - Labs Labs: 04/07/18 17:33 04/07/18 08:49 PT 14.6 SECONDS (9.7-12.2) H 04/06/18 14:20 INR 1.3 04/06/18 14:20 APTT 32 SECONDS (21-34) 04/06/18 14:20 - Constitutional Appears: Non-toxic, No Acute Distress - Head Exam Head Exam: ATRAUMATIC, NORMAL INSPECTION - Eye Exam Eye Exam: EOMI, Normal appearance, PERRL - ENT Exam ENT Exam: Mucous Membranes Moist - Neck Exam Neck Exam: Normal Inspection - Respiratory Exam Respiratory Exam: Clear to Ausculation Bilateral, NORMAL BREATHING PATTERN - Cardiovascular Exam Cardiovascular Exam: REGULAR RHYTHM, +S1, +S2, Murmur - GI/Abdominal Exam GI & Abdominal Exam: Distended, Soft. absent: Firm, Guarding, Tenderness, Rebound Additional comments: well-healed surgical scar below umbilicus from remote hernia repairs - Rectal Exam Rectal Exam: Deferred - Extremities Exam Extremities Exam: Normal Inspection. absent: Pedal Edema, Tenderness - Neurological Exam Neurological Exam: Alert, Awake, CN II-XII Intact, Oriented x3 - Psychiatric Exam Psychiatric exam: Normal Affect, Normal Mood - Skin Skin Exam: Dry, Intact, Normal Color, Warm Assessment and Plan - Assessment and Plan (Free Text) Assessment: Patient is an 83 yo female with a history of colon CA and RA who presented with N/V/D x 3 days. Patient reported taking an increasing amount of Naproxen for her RA over the past few weeks. Patient found to be acutely anemic on admission (Hg 7.7). She received 1 u pRBC without response. She received a 2nd unit with good response (7.6->10.1). She is scheduled for EGD today 04/08. Additionally, murmur heard on exam and b/l LE edema- will obtain echo. Plan: Epigastic pain with nausea, vomiting, diarrhea, improving- suspect upper GI bleed 2/2 to NSAID use, r/o malignancy (h/o colon CA) - CT A/P: There is fairly significant wall thickening of the stomach. Findings could represent a gastritis or possibly gastric carcinoma. There is also small hiatal hernia with wall thickening of the distal esophagus that could all represent inflammation or neoplasia. Follow-up endoscopy recommended. Mild hepatomegaly with fatty infiltration. Numerous hepatic cysts. Questionable cholelithiasis.. Bilateral renal cyst. Mild wall thickening the descending and distal transverse colon with scattered colonic diverticula. Findings could be secondary to incomplete distention peristalsis, unopacified stool however and possibly muscular hypertrophy however the possibility of chronic inflammation not excluded. Clinical correlation recommended. Enlarged bulky fibroid uterus. Left adnexal cyst for which a pelvic ultrasound follow-up recommended. Paraseptal emphysematous changes with questionable concomitant fibrosis both lung bases. - Lipase wnl - FOBT positive x2 - Patient admits to black stools - Zofran 4 mg IV Q6H PRN - Protonix drip - Morphine 2 mg IV Q4H PRN - Discontinue IVF (LE edema, lung crackles) - NPO - EGD today 04/08 - GI consulted ([facility]) Anemia, acute- suspect upper GI bleed 2/2 to NSAID use, r/o malignancy - Hgb 7.7->7.6 after 1u pRBC; 7.7->10.1 after 1 u pRBC - Total 2 u pRBC - Iron, ferritin wnl - TIBC low (241), % sat low (16) - B12 wnl - Patient's oncologist, Dr. Guthrie, reports that baseline Hgb is 12-14 and recommends transfusing 2-3 units Holosystolic murmur- new to patient, also with b/l LE edema on exam 04/07 - Echo pending Rheumatoid arthritis - Patient reports using "herbal" remedies - Avoid NSAIDs - Morphine 2 mg IV Q4H PRN - Consider DMARD - Rheumatology consulted ([facility]) H/o colon CA- s/p resection - CEA wnl (2.4) - Hem/onc consulted ([place]) Hyponatremia, resolved - Monitor BMP - Discontinue IVF Ppx: VTE: SCDs, chemical anticoag contraindicated due to acute anemia GI: PTX drip Code status: full code Case was discussed with attending, Dr. Musa.
[2018-04-08 08:52] LABS: BASO # 0.1 K/uL (0.0-0.2); BASO % 0.7 % (0.0-2.0); EOS # 0.5 K/uL (0.0-0.7); EOS % 4.3 % (0.0-4.0); HEMOGLOBIN 10.1 g/dL (11.0-16.0); LYMPH # 1.8 K/uL (1.0-4.3); LYMPH % 14.7 % (20.0-40.0); MEAN CELL VOLUME 92.6 fL (81.0-99.0); MEAN CORPUSCULAR HEMOGLOBIN 31.6 pg (27.0-31.0); MEAN CORPUSCULAR HGB CONC 34.1 g/dL (33.0-37.0); MEAN PLATELET VOLUME 7.8 fL (7.2-11.7); MONO % 7.8 % (0.0-10.0); NEUT # 8.9 K/uL (1.8-7.0); NEUT % 72.5 % (50.0-75.0); NRBC % 0.1 % (0.0-2.0); RBC 3.19 Mil/uL (3.80-5.20); RED CELL DISTRIBUTION WIDTH 15.2 % (11.5-14.5); WHITE BLOOD COUNT 12.2 K/uL (4.8-10.8)
[2018-04-08 09:09] LABS: ALBUMIN 2.9 g/dL (3.5-5.0); ALT/SGPT 25 U/L (9-52); AST/SGOT 23 U/L (14-36); BLOOD UREA NITROGEN 11 mg/dL (7-17); CALCIUM 8.8 mg/dl (8.6-10.4); GFR NON-AFRICAN AMERICAN 60
[2018-04-08] MEDS ORDERED: Propofol 10 mg/ml Inj (20 ML) ONE (13:17)
--- NOTE | 2018-04-08 14:49 | CARD ---
APPROVED REPORT Date of service: 04/06/2018 EKG Measurement Heart [id number] <Conclusion> Normal sinus rhythm Left posterior fascicular block Abnormal QRS-T angle, consider primary T wave abnormality Abnormal ECG
[2018-04-08 16:19] VITALS: RESP 20
[2018-04-08] MEDS ORDERED: Simethicone 80 mg Chewtab PO ONE (21:00)
[2018-04-08 22:28] LABS: ANTI STREPTOLYSIN O NEGATIVE (NEGATIVE)
--- NOTE | 2018-04-08 22:41 | CARD ---
APPROVED REPORT Date of service: 04/08/2018 EXAM: Two-dimensional and M-mode echocardiogram with Doppler and color Doppler. Other Information Quality : GoodRhythm : INDICATION Murmur LE EDEMA RISK FACTORS Hypertension 2D DIMENSIONS IVSd0.9 (0.7-1.1cm)LVDd4.7 (3.9-5.9cm) PWd0.7 (0.7-1.1cm)LA Ixubjo61 (18-58mL) LVDs3.1 (2.5-4.0cm)FS (%) 33.6 % LVEF (%)62.4 (>50%)LVEF ([place]'s)63.38 % M-Mode DIMENSIONS Left Atrium (MM)3.98 (2.5-4.0cm)IVSd0.65 (0.7-1.1cm) Aortic Root2.94 (2.2-3.7cm)LVDd5.11 (4.0-5.6cm) Aortic Cusp Exc.1.54 (1.5-2.0cm)PWd0.94 (0.7-1.1cm) FS (%) 41 %LVDs3.20 (2.0-3.8cm) LVEF (%)65 (>50%) Mitral Valve MV E Jujxxfzz75.4cm/sMV A Uydxhagf523.4cm/sE/A ratio0.8 BNJO647.00 cm/s TDI Lateral E' Peak V7.96cm/sMedial E' Peak V4.61cm/sE/Lateral E'11.9 E/Medial E'20.5 Tricuspid Valve TR Peak Yythbgxn611xs/sTR Peak Gr.27efRiXZMN31szPb LEFT VENTRICLE The left ventricle is normal size. There is normal left ventricular wall thickness. Left ventricle systolic function is normal. The Ejection Fraction is 60-65%. There is normal LV segmental wall motion. The left ventricular diastolic function is abnormal- Grade I-abnormal relaxation pattern. No left ventricle thrombus noted on this study. RIGHT VENTRICLE The right ventricle is normal size. The right ventricular systolic function is normal. ATRIA The left atrium size is normal. The right atrium size is normal. AORTIC VALVE The aortic valve is mildly sclerotic. The aortic valve is trileaflet. No aortic regurgitation is present. There is no aortic valvular stenosis. MITRAL VALVE Mitral annular calcification is mild. There is no evidence of mitral valve prolapse. There is no mitral valve stenosis. Mitral regurgitation is mild. TRICUSPID VALVE The tricuspid valve is normal in structure. There is trace to mild tricuspid regurgitation. Right ventricular systolic pressure is estimated at 30-40 mmHg. There is no pulmonary hypertension. There is no tricuspid valve prolapse or vegetation. There is no tricuspid valve stenosis. PULMONIC VALVE The pulmonary valve is normal in structure. There is no pulmonic valvular regurgitation. There is no pulmonic valvular stenosis. GREAT VESSELS The aortic root is normal in size. The IVC is normal in size and collapses >50% with inspiration. PERICARDIAL EFFUSION There is no pericardial effusion. There is no pleural effusion. <Conclusion> The left ventricle is normal size. Left ventricle systolic function is normal. The Ejection Fraction is 60-65%. The left ventricular diastolic function is abnormal- Grade I-abnormal relaxation pattern. The right ventricle is normal size. The right ventricular systolic function is normal. The left atrium size is normal. The right atrium size is normal. Mitral regurgitation is mild. There is trace to mild tricuspid regurgitation.
[2018-04-09] MEDS: Pantoprazole 80 MG in Sodium Chloride 0.9% 100 ML IV SCH (03:28)
[2018-04-09 07:28] LABS: BASO # 0.1 K/uL (0.0-0.2); BASO % 0.5 % (0.0-2.0); EOS # 0.5 K/uL (0.0-0.7); EOS % 5.2 % (0.0-4.0); LYMPH # 1.3 K/uL (1.0-4.3); LYMPH % 12.5 % (20.0-40.0); MEAN CELL VOLUME 92.4 fL (81.0-99.0); MEAN CORPUSCULAR HEMOGLOBIN 31.6 pg (27.0-31.0); MEAN CORPUSCULAR HGB CONC 34.2 g/dL (33.0-37.0); MEAN PLATELET VOLUME 7.5 fL (7.2-11.7); MONO # 0.9 K/uL (0.0-0.8); MONO % 8.4 % (0.0-10.0); NEUT # 7.5 K/uL (1.8-7.0); NEUT % 73.4 % (50.0-75.0); RBC 3.17 Mil/uL (3.80-5.20); RED CELL DISTRIBUTION WIDTH 15.3 % (11.5-14.5); WHITE BLOOD COUNT 10.2 K/uL (4.8-10.8)
[2018-04-09 07:54] LABS: ALBUMIN 2.8 g/dL (3.5-5.0); ALT/SGPT 32 U/L (9-52); AST/SGOT 37 U/L (14-36); BLOOD UREA NITROGEN 7 mg/dL (7-17); CALCIUM 8.6 mg/dl (8.6-10.4); GFR NON-AFRICAN AMERICAN > 60
--- NOTE | 2018-04-09 09:36 | CP.PCM.PN ---
Subjective - Date & Time of Evaluation Date of Evaluation: 04/09/18 Time of Evaluation: 09:34 - Subjective Subjective: PGY-1 Genoveva Shea D.O. Medicine progress note for Dr. Musa's service: Patient was seen and examined this morning. She was examined in bed today. She complains of pain in bilateral hands rated 8/10, shooting pains down to her leg to the top of her feet, and occasionally under her L breast all exacerbated by moving. She notes mild 3/10 abdominal pain. She has been burping a lot, but says it has been a chronic issue. She had a bowel movement last night at 3AM that was black-like diarrhea. She is tolerating clear liquids well and would like to advance her diet. She denies chest pain, fever/chills, nausea, and vomiting. Objective - Vital Signs/Intake and Output Vital Signs (last 24 hours): Temp Pulse Resp BP Pulse Ox 97.7 F 75 20 147/76 94 L 04/09/18 07:19 04/09/18 07:19 04/09/18 07:19 04/09/18 07:19 04/09/18 07:19 - Medications Medications: Current Medications Pantoprazole Sodium 80 mg/ (Sodium Chloride) 100 mls @ 10 mls/hr IV .Q10H [facility] Last Admin: 04/09/18 03:28 Dose: 10 mls/hr Levothyroxine Sodium (Synthroid) 88 mcg PO DAILY [facility] Morphine Sulfate (Morphine) 2 mg IVP Q4 PRN PRN Reason: Pain, severe (8-10) Last Admin: 04/09/18 06:34 Dose: 2 mg Ondansetron HCl (Zofran Inj) 4 mg IVP Q6 PRN PRN Reason: Nausea/Vomiting - Labs Labs: 04/09/18 07:19 04/09/18 07:19 PT 14.6 SECONDS (9.7-12.2) H 04/06/18 14:20 INR 1.3 04/06/18 14:20 APTT 32 SECONDS (21-34) 04/06/18 14:20 - Additional Findings Additional findings: - Constitutional Appears: Non-toxic, No Acute Distress - Head Exam Head Exam: ATRAUMATIC, NORMAL INSPECTION - Eye Exam Eye Exam: EOMI, Normal appearance, PERRL - ENT Exam ENT Exam: Mucous Membranes Moist - Neck Exam Neck Exam: Normal Inspection - Respiratory Exam Respiratory Exam: B/l wheezes, NORMAL BREATHING PATTERN - Cardiovascular Exam Cardiovascular Exam: REGULAR RHYTHM, +S1, +S2, Murmur - GI/Abdominal Exam GI & Abdominal Exam: Distended, Soft. absent: Firm, Guarding, Tenderness, Rebound Additional comments: well-healed surgical scar below umbilicus from remote hernia repairs - Rectal Exam Rectal Exam: Deferred - Extremities Exam Extremities Exam: Normal Inspection. absent: Pedal Edema, Tenderness - Neurological Exam Neurological Exam: Alert, Awake, CN II-XII Intact, Oriented x3 - Psychiatric Exam Psychiatric exam: Normal Affect, Normal Mood - Skin Skin Exam: Dry, Intact, Normal Color, Warm Assessment and Plan - Assessment and Plan (Free Text) Assessment: Patient is an 83 yo female with a history of colon CA and RA who presented with N/V/D x 3 days. Patient reported taking an increasing amount of Naproxen for her RA over the past few weeks. Patient found to be acutely anemic on admission (Hg 7.7). She received 1 u pRBC without response. She received a 2nd unit with good response (7.6->10.1). She is scheduled for EGD today 04/08. Additionally, murmur heard on exam and b/l LE edema- will obtain echo. Plan: Epigastic pain with nausea, vomiting, diarrhea, improving- suspect upper GI bleed 2/2 to NSAID use, r/o malignancy (h/o colon CA) - CT A/P: There is fairly significant wall thickening of the stomach. Findings could represent a gastritis or possibly gastric carcinoma. There is also small hiatal hernia with wall thickening of the distal esophagus that could all represent inflammation or neoplasia. Follow-up endoscopy recommended. Mild hepatomegaly with fatty infiltration. Numerous hepatic cysts. Questionable cholelithiasis.. Bilateral renal cyst. Mild wall thickening the descending and distal transverse colon with scattered colonic diverticula. Findings could be secondary to incomplete distention peristalsis, unopacified stool however and possibly muscular hypertrophy however the possibility of chronic inflammation not excluded. Clinical correlation recommended. Enlarged bulky fibroid uterus. Left adnexal cyst for which a pelvic ultrasound follow-up recommended. Paraseptal emphysematous changes with questionable concomitant fibrosis both lung bases. - Lipase wnl - FOBT positive x2 - Patient admits to black stools - Zofran 4 mg IV Q6H PRN - Protonix 40 mg PO BID - Morphine 2 mg IV Q4H PRN - Full liquids - EGD 04/08- esophagitis, gastritis, gastric ulcers, hiatal hernia - F/u Bx - GI consulted ([facility]) Anemia, acute- suspect upper GI bleed 2/2 to NSAID use, r/o malignancy - Hgb 7.7->7.6 after 1u pRBC; 7.7->10.1 after 1 u pRBC - Total 2 u pRBC - Iron, ferritin wnl - TIBC low (241), % sat low (16) - B12 wnl - Patient's oncologist, Dr. Guthrie, reports that baseline Hgb is 12-14 and recommends transfusing 2-3 units Rheumatoid arthritis, chronic - Patient reports using "herbal" remedies - Avoid NSAIDs - Ice packs to hands and ankles - Morphine 2 mg IV Q4H PRN - TITO negative - ASO negative - Cyclic citrullinated peptide IgG Ab <16 - Quantiferon gold pending - Rheumatology consulted ([facility]) Hypothyroidism, chronic - Synthroid 88 mcg PO daily Holosystolic murmur- new to patient, also with b/l LE edema on exam 04/07 - Echo: EF 60-65%, grade I diastolic dysfunction, mild MR, mild TR H/o colon CA- s/p resection - CEA wnl (2.4) - Hem/onc consulted ([place]) Hyponatremia, resolved - Monitor BMP - Discontinue IVF Ppx: VTE: SCDs, chemical anticoag contraindicated due to acute anemia GI: PTX drip Code status: full code Case was discussed with attending, Dr. Musa.
[2018-04-09] MEDS: Levothyroxine 88 MCG TAB PO SCH (10:35)
[2018-04-09] MEDS: Pantoprazole 40 mg EC Tab PO SCH ×2 (11:34→18:09)
--- NOTE | 2018-04-09 11:43 | CP.PCM.PN ---
Subjective - Date & Time of Evaluation Date of Evaluation: 04/09/18 Time of Evaluation: 11:41 - Subjective Subjective: black stool. Hgb stable Large gastric ulcers, likely NSAID-induced. On Protonix high dose Follow Hgb Objective - Vital Signs/Intake and Output Vital Signs (last 24 hours): Temp Pulse Resp BP Pulse Ox 97.7 F 75 20 147/76 94 L 04/09/18 07:19 04/09/18 07:19 04/09/18 07:19 04/09/18 07:19 04/09/18 07:19 - Medications Medications: Current Medications Levothyroxine Sodium (Synthroid) 88 mcg PO DAILY [facility] Last Admin: 04/09/18 10:35 Dose: 88 mcg Morphine Sulfate (Morphine) 2 mg IVP Q4 PRN PRN Reason: Pain, severe (8-10) Last Admin: 04/09/18 06:34 Dose: 2 mg Ondansetron HCl (Zofran Inj) 4 mg IVP Q6 PRN PRN Reason: Nausea/Vomiting Pantoprazole Sodium (Protonix Ec Tab) 40 mg PO BID [facility] Last Admin: 04/09/18 11:34 Dose: 40 mg - Labs Labs: 04/09/18 07:19 04/09/18 07:19 PT 14.6 SECONDS (9.7-12.2) H 04/06/18 14:20 INR 1.3 04/06/18 14:20 APTT 32 SECONDS (21-34) 04/06/18 14:20 - Constitutional Appears: Well, No Acute Distress - Respiratory Exam Respiratory Exam: NORMAL BREATHING PATTERN - Cardiovascular Exam Cardiovascular Exam: REGULAR RHYTHM - GI/Abdominal Exam GI & Abdominal Exam: Soft. absent: Tenderness Assessment and Plan (1) Abdominal pain Assessment & Plan: Gastric ulcers Status: Acute (2) Anemia Assessment & Plan: GI bleed from ulcers Stay off NSAIDs and continue high dose PPI. Check gastric biopsies when available Status: Acute
[2018-04-09 13:26] LABS: RNP <1.0 AI (<1.0)
[2018-04-09 15:47] VITALS: O2SAT 96
[2018-04-10 06:48] LABS: BASO # 0.1 K/uL (0.0-0.2); BASO % 0.9 % (0.0-2.0); EOS # 0.6 K/uL (0.0-0.7); EOS % 5.3 % (0.0-4.0); HEMOGLOBIN 9.8 g/dL (11.0-16.0); LYMPH # 1.6 K/uL (1.0-4.3); LYMPH % 14.5 % (20.0-40.0); MEAN CELL VOLUME 91.4 fL (81.0-99.0); MEAN CORPUSCULAR HEMOGLOBIN 30.7 pg (27.0-31.0); MEAN CORPUSCULAR HGB CONC 33.6 g/dL (33.0-37.0); MEAN PLATELET VOLUME 8.2 fL (7.2-11.7); MONO % 9.3 % (0.0-10.0); NEUT # 7.8 K/uL (1.8-7.0); NRBC % 0.1 % (0.0-2.0); RBC 3.2 Mil/uL (3.80-5.20); RED CELL DISTRIBUTION WIDTH 14.7 % (11.5-14.5); WHITE BLOOD COUNT 11.1 K/uL (4.8-10.8)
[2018-04-10 08:05] VITALS: TEMP 98.2
[2018-04-10] MEDS: Levothyroxine 88 MCG TAB PO SCH (09:29)
[2018-04-10] MEDS: Pantoprazole 40 mg EC Tab PO SCH (09:29)
--- NOTE | 2018-04-10 10:35 | CP.PCM.CON ---
History of Present Illness - History of Present Illness History of Present Illness: 83-year-old female who developed severe joint pain of the hands and feet about 8 weeks ago. She has been taking 8 Naprosyn tablets a day to relieve the pain and swelling. Patient was seen in t 5 days ago complaining of nausea, vomiting and epigastric pain. She also developed recurrent diarrhea. Following evaluation i which revealed a hematocrit of 20, patient was admitted for evaluation and treatment. past history includes cancer of the colon, abdominal hernia and hypertension. Hematology and gastroenterology consultations were requested. Two weeks prior to admission, patient was evaluated by a private baling press operator who suggested treatment with a DMARD. Rheumatoid factor was 20. Patient refused treatment at that time. Presently, patient still has severe pain and swelling of the hands and feet. She is receiving morphine for pain control. Patient was examined and a discussion ensued possible treatment. Various possible DMARD treatments were discussed with the patient and her son. Possible side effects and risks were explained to the patient in lue of her previous cancer diagnosis. Patient st ated that she is in severe pain and needs treatment even if their are potential risks. It was also explained that she would need to have a tuberculosis test before initiating treatment. If TB testing is negative, will begin treatment with leflunomide 20 mg once a day. Suggest we stop morphine and begin tramadol 50 mg one tablet 4 times a day as necessary. Review of Systems - Constitutional Constitutional: Other (joint pain and swelling) - EENT Eyes: Dry Eye - Gastrointestinal Gastrointestinal: Abdominal Pain, Diarrhea, Nausea - Reproductive: Female Reproductive:Female: Menopausal - Musculoskeletal Musculoskeletal: Arthralgias - Integumentary Integumentary: Dry Skin Past Patient History - Tetanus Immunizations Tetanus Immunization: Up to Date - Past Medical History & Family History Past Medical History?: Yes - Past Social History Smoking Status: Former Smoker Chewing Tobacco Use: No Cigar Use: No Alcohol: None - CARDIAC Hx Hypertension: Yes - PULMONARY Hx Respiratory Disorders: No - NEUROLOGICAL Hx Neurological Disorder: No - HEENT Hx HEENT Problems: Yes Hx Deafness: (hard of hearing bilateral ears) - RENAL Hx Chronic Kidney Disease: No - ENDOCRINE/METABOLIC Hx Endocrine Disorders: No - HEMATOLOGICAL/ONCOLOGICAL Hx Anemia: Yes Other/Comment: colon Ca - INTEGUMENTARY Hx Dermatological Problems: No - MUSCULOSKELETAL/RHEUMATOLOGICAL Hx Arthritis: Yes Hx Rheumatoid Arthritis: Yes - GASTROINTESTINAL Hx Gastrointestinal Disorders: No - GENITOURINARY/GYNECOLOGICAL Hx Genitourinary Disorders: No - PSYCHIATRIC Hx Substance Use: No - SURGICAL HISTORY Hx Surgeries: Yes Other/Comment: colectomy - ANESTHESIA Hx Anesthesia: Yes Hx Anesthesia Reactions: No Meds Allergies/Adverse Reactions: Allergies Allergy/AdvReac Type Severity Reaction Status Date / Time No Known Allergies Allergy Verified 09/08/12 09:33 - Medications Medications: Current Medications Levothyroxine Sodium (Synthroid) 88 mcg PO DAILY [facility] Last Admin: 04/10/18 09:29 Dose: 88 mcg Morphine Sulfate (Morphine) 2 mg IVP Q4 PRN PRN Reason: Pain, severe (8-10) Last Admin: 04/09/18 06:34 Dose: 2 mg Ondansetron HCl (Zofran Inj) 4 mg IVP Q6 PRN PRN Reason: Nausea/Vomiting Pantoprazole Sodium (Protonix Ec Tab) 40 mg PO BID [facility] Last Admin: 04/10/18 09:29 Dose: 40 mg Physical Exam - Constitutional Appears: No Acute Distress - Head Exam Head Exam: NORMOCEPHALIC - Eye Exam Eye Exam: Normal appearance Pupil Exam: NORMAL ACCOMODATION - ENT Exam ENT Exam: Normal Exam - Neck Exam Neck exam: Positive for: Normal Inspection - Respiratory Exam Respiratory Exam: NORMAL BREATHING PATTERN - Cardiovascular Exam Cardiovascular Exam: REGULAR RHYTHM - GI/Abdominal Exam GI & Abdominal Exam: Normal Bowel Sounds, Tenderness - Exam External exam: NORMAL EXTERNAL EXAM - Extremities Exam Extremities exam: Positive for: tenderness - Back Exam Back exam: NORMAL INSPECTION - Neurological Exam Neurological exam: Oriented x3 - Skin Skin Exam: Dry Results - Vital Signs Recent Vital Signs: Last Vital Signs Temp 98.2 F 04/10/18 07:20 Pulse 73 04/10/18 07:20 Resp 20 04/10/18 07:20 BP 145/76 04/10/18 07:20 Pulse Ox 96 04/10/18 07:20 - Labs Result Diagrams: 04/10/18 06:40 04/09/18 07:19 Labs: Laboratory Results - last 24 hr 04/07/18 04/07/18 04/07/18 20:11 20:11 20:11 WBC RBC Hgb Hct MCV MCH MCHC RDW Plt Count MPV Neut % (Auto) Lymph % (Auto) [place] % (Auto) Eos % (Auto) Baso % (Auto) Neut # (Auto) Lymph # (Auto) [place] # (Auto) Eos # (Auto) Baso # (Auto) Phosphorus Magnesium C-Reactive Prot, Quant 27.6 H TITO 6 Profile Negative [employer]HICLE WASHER Antibody <1.0 VEHICLE WASHER Antibody Interp Negative 04/10/18 04/10/18 06:40 06:40 WBC 11.1 H RBC 3.20 L Hgb 9.8 L Hct 29.2 L MCV 91.4 MCH 30.7 MCHC 33.6 RDW 14.7 H Plt Count 372 MPV 8.2 Neut % (Auto) 70.0 Lymph % (Auto) 14.5 L [place] % (Auto) 9.3 Eos % (Auto) 5.3 H Baso % (Auto) 0.9 Neut # (Auto) 7.8 H Lymph # (Auto) 1.6 [place] # (Auto) 1.0 H Eos # (Auto) 0.6 Baso # (Auto) 0.1 Phosphorus 3.1 Magnesium 1.9 C-Reactive Prot, Quant TITO 6 Profile VEHICLE WASHER Antibody VEHICLE WASHER Antibody Interp Assessment & Plan (1) Rheumatoid arthritis Status: Acute (2) Anemia Status: Acute
--- NOTE | 2018-04-10 10:42 | CP.PCM.PN ---
Subjective - Date & Time of Evaluation Date of Evaluation: 04/10/18 Time of Evaluation: 10:20 - Subjective Subjective: f/u GI BLEED fAMILY Jose IS PRESENT dENIES cp, sob, FEVER, [place], COUGH, ABD PAIN, HEMATURIA, sz Objective - Vital Signs/Intake and Output Vital Signs (last 24 hours): Temp Pulse Resp BP Pulse Ox 98.2 F 73 20 145/76 96 04/10/18 07:20 04/10/18 07:20 04/10/18 07:20 04/10/18 07:20 04/10/18 07:20 Intake and Output: 04/10/18 04/10/18 06:59 18:59 Intake Total 360 Balance 360 - Medications Medications: Current Medications Levothyroxine Sodium (Synthroid) 88 mcg PO DAILY [facility] Last Admin: 04/10/18 09:29 Dose: 88 mcg Morphine Sulfate (Morphine) 2 mg IVP Q4 PRN PRN Reason: Pain, severe (8-10) Last Admin: 04/09/18 06:34 Dose: 2 mg Ondansetron HCl (Zofran Inj) 4 mg IVP Q6 PRN PRN Reason: Nausea/Vomiting Pantoprazole Sodium (Protonix Ec Tab) 40 mg PO BID [facility] Last Admin: 04/10/18 09:29 Dose: 40 mg - Labs Labs: 04/10/18 06:40 04/09/18 07:19 PT 14.6 SECONDS (9.7-12.2) H 04/06/18 14:20 INR 1.3 04/06/18 14:20 APTT 32 SECONDS (21-34) 04/06/18 14:20 - Constitutional Appears: Well - Respiratory Exam Respiratory Exam: Clear to Ausculation Bilateral - Cardiovascular Exam Cardiovascular Exam: RRR - GI/Abdominal Exam GI & Abdominal Exam: Soft, Normal Bowel Sounds. absent: Guarding, Tenderness, Mass, Rebound - Extremities Exam Extremities Exam: absent: Calf Tenderness - Neurological Exam Neurological Exam: Alert, Awake, Oriented x3 Assessment and Plan - Assessment and Plan (Free Text) Assessment: 1) GI bleed- mG ulcers G ulcers- mult, large. From NSAIDs. H pylori neg Hb relatively stable. Black stool may persist for 1 week. Rec- PPI BID, check Hb, No NSAIDs, bland diet 3) Gastric biopsy- metaplasia- repeat EGD 1-2 months 4) Anemia 5) ARTHRITIS
[2018-04-10 10:57] LABS: ALBUMIN 2.7 g/dL (3.5-5.0); ALT/SGPT 36 U/L (9-52); AST/SGOT 67 U/L (14-36); BLOOD UREA NITROGEN 7 mg/dL (7-17); GFR NON-AFRICAN AMERICAN > 60
--- NOTE | 2018-04-10 11:17 | RAD ---
Date of service: 04/09/2018 PROCEDURE: HISTORY: erosions COMPARISON: None TECHNIQUE: Three views each hand FINDINGS: Mild generalized osteopenia suggested. No fracture seen. Bilateral 1st carpal metacarpal marked joint space narrowing osteophytosis and subchondral sclerosis and cystic changes here noted. A low-density well corticated ossification projects over the right extra-articular soft tissues here. All proximal and distal interphalangeal joint spaces are also markedly narrow with prominent osteophytosis-an appearance compatible with an erosive osteoarthrosis. Mild flexion deformity the left 3rd and right 5th DIP joint suggested. Nodular soft tissue prominence right 3rd DIP joints as well. Although there are subchondral cystic changes. Very little gross erosions are appreciated. Few punctate sub mm ossifications calcifications are seen at the medial an lateral right 2nd proximal interphalangeal joint. No ulnar styloid erosion seen. 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 Each DIP joint is most notably affected as is each 1st carpal metacarpal joint. Most of the osseous abnormalities involve seagull type spurring. No prominent or significant appearing a specific erosions are noted. There are tiny subcortical cystic changes however suggested at all sites. Right hand greater than left hand.
[2018-04-10 11:56] VITALS: BP 157/75; PULSE 80
--- NOTE | 2018-04-10 14:46 | CP.PCM.DIS ---
Provider - Provider Date of Admission: 04/06/18 18:36 Attending physician: Hernan Musa MD Primary care physician: Oren Consults: 04/06/18 22:06 Hematology Oncology Consult Routine Comment: Consulting Provider: Bernadette Guthrie Consulting Physician: Bernadette Guthrie Reason for Consult: hx of colon CA, epigastric pain, acute anemia 04/06/18 22:26 Gastroenterology Consult Routine Comment: Consulting Provider: Ayan Dowd Consulting Physician: Ayan Dowd Reason for Consult: hx of colon ca, nausea, vomiting, diarrhea, anemia 04/07/18 16:51 Physician Consult Routine Comment: Consulting Provider: Syed Mayo Consulting Physician: Syed Mayo Reason for Consult: untreated RA Time Spent in preparation of Discharge (in minutes): 45 Diagnosis - Discharge Diagnosis (1) Anemia due to acute blood loss Status: Acute Priority: High (2) Upper GI bleed Status: Acute Priority: High (3) NSAID-associated gastropathy Status: Acute Priority: High (4) Hypothyroidism Status: Chronic Priority: Low (5) Arthritis Status: Chronic Priority: Medium (6) History of colon cancer Status: Resolved Priority: Medium Hospital Course - Lab Results Lab Results: Most Recent Lab Values WBC 11.1 K/uL (4.8-10.8) H 04/10/18 06:40 RBC 3.20 Mil/uL (3.80-5.20) L 04/10/18 06:40 Hgb 9.8 g/dL (11.0-16.0) L 04/10/18 06:40 Hct 29.2 % (34.0-47.0) L 04/10/18 06:40 MCV 91.4 fL (81.0-99.0) 04/10/18 06:40 MCH 30.7 pg (27.0-31.0) 04/10/18 06:40 MCHC 33.6 g/dL (33.0-37.0) 04/10/18 06:40 RDW 14.7 % (11.5-14.5) H 04/10/18 06:40 Plt Count 372 K/uL (130-400) 04/10/18 06:40 MPV 8.2 fL (7.2-11.7) 04/10/18 06:40 Neut % (Auto) 70.0 % (50.0-75.0) 04/10/18 06:40 Lymph % (Auto) 14.5 % (20.0-40.0) L 04/10/18 06:40 [place] % (Auto) 9.3 % (0.0-10.0) 04/10/18 06:40 Eos % (Auto) 5.3 % (0.0-4.0) H 04/10/18 06:40 Baso % (Auto) 0.9 % (0.0-2.0) 04/10/18 06:40 Neut # (Auto) 7.8 K/uL (1.8-7.0) H 04/10/18 06:40 Lymph # (Auto) 1.6 K/uL (1.0-4.3) 04/10/18 06:40 [place] # (Auto) 1.0 K/uL (0.0-0.8) H 04/10/18 06:40 Eos # (Auto) 0.6 K/uL (0.0-0.7) 04/10/18 06:40 Baso # (Auto) 0.1 K/uL (0.0-0.2) 04/10/18 06:40 Neutrophils % (Manual) 85 % (50-75) H 04/06/18 14:20 Lymphocytes % (Manual) 13 % (20-40) L 04/06/18 14:20 Monocytes % (Manual) 2 % (0-10) 04/06/18 14:20 Toxic Granulation Present 04/06/18 14:20 Platelet Estimate Normal (NORMAL) 04/06/18 14:20 Large Platelets Present 04/06/18 14:20 Giant Platelets Present 04/06/18 14:20 Polychromasia Slight 04/06/18 14:20 Hypochromasia (manual) Slight 04/06/18 14:20 Anisocytosis (manual) Slight 04/06/18 14:20 Macrocytosis (manual) Slight 04/06/18 14:20 ESR 77 mm/hr (0-20) H 04/07/18 20:11 PT 14.6 SECONDS (9.7-12.2) H 04/06/18 14:20 INR 1.3 04/06/18 14:20 APTT 32 SECONDS (21-34) 04/06/18 14:20 Sodium 130 mmol/L (132-148) L 04/10/18 06:40 Potassium 4.1 mmol/L (3.6-5.2) 04/10/18 06:40 Chloride 100 mmol/L (98-107) 04/10/18 06:40 Carbon Dioxide 25 mmol/L (22-30) 04/10/18 06:40 Anion Gap 10 (10-20) 04/10/18 06:40 BUN 7 mg/dL (7-17) 04/10/18 06:40 Creatinine 0.8 mg/dL (0.7-1.2) 04/10/18 06:40 Est GFR ( Amer) > 60 04/10/18 06:40 Est GFR (Non-Af Amer) > 60 04/10/18 06:40 Random Glucose 95 mg/dL (65-105) 04/10/18 06:40 Calcium 9.0 mg/dl (8.6-10.4) 04/10/18 06:40 Phosphorus 3.1 mg/dL (2.5-4.5) 04/10/18 06:40 Magnesium 1.9 mg/dL (1.6-2.3) 04/10/18 06:40 Iron 39 ug/dL (37-170) 04/06/18 22:54 TIBC 241 ug/dL (250-450) L 04/06/18 22:54 % Saturation 16 (20-55) L 04/06/18 22:54 Ferritin 54.9 ng/mL 04/06/18 22:54 Total Bilirubin 0.7 mg/dL (0.2-1.3) 04/10/18 06:40 AST 67 U/L (14-36) H D 04/10/18 06:40 ALT 36 U/L (9-52) 04/10/18 06:40 Alkaline Phosphatase 53 U/L (38-126) 04/10/18 06:40 Total Creatine Kinase 117 U/L (30-135) 04/06/18 14:20 Troponin I 0.0150 ng/mL (0.00-0.120) 04/06/18 14:20 C-Reactive Prot, Quant 27.6 mg/L (<8.0) H 04/07/18 20:11 Total Protein 5.5 g/dL (6.3-8.3) L 04/10/18 06:40 Albumin 2.7 g/dL (3.5-5.0) L 04/10/18 06:40 Globulin 2.8 gm/dL (2.2-3.9) 04/10/18 06:40 Albumin/Globulin Ratio 1.0 (1.0-2.1) 04/10/18 06:40 Lipase 32 U/L (23-300) 04/06/18 14:20 Carcinoembryonic Ag 2.4 ng/mL (0-3.0) 04/06/18 22:54 Vitamin B12 693 pg/mL (239-931) 04/06/18 22:54 Urine Color Straw (YELLOW) 04/06/18 16:47 Urine Clarity Clear (Clear) 04/06/18 16:47 Urine pH 6.0 (5.0-8.0) 04/06/18 16:47 Ur Specific [place] 1.006 (1.003-1.030) 04/06/18 16:47 Urine Protein Negative mg/dL (NEGATIVE) 04/06/18 16:47 Urine Glucose (UA) Normal mg/dL (Normal) 04/06/18 16:47 Urine Ketones Negative mg/dL (NEGATIVE) 04/06/18 16:47 Urine Blood Negative (NEGATIVE) 04/06/18 16:47 Urine Nitrate Negative (NEGATIVE) 04/06/18 16:47 Urine Bilirubin Negative (NEGATIVE) 04/06/18 16:47 Urine Urobilinogen Normal mg/dL (0.2-1.0) 04/06/18 16:47 Ur Leukocyte Esterase Neg Win/uL (Negative) 04/06/18 16:47 Urine WBC (Auto) < 1 /hpf (0-5) 04/06/18 16:47 Urine RBC (Auto) 1 /hpf (0-3) 04/06/18 16:47 Ur Squamous Epith Cells < 1 /hpf (0-5) 04/06/18 16:47 Stool Occult Blood (NEGATIVE) 04/07/18 02:48 Cycl Citrul Peptide IgG <16 Units 04/07/18 20:11 TITO 6 Profile Negative (NEGATIVE) 04/07/18 20:11 CAMPAIGN MARKETING MANAGER Antibody <1.0 AI (<1.0) 04/07/18 20:11 CAMPAIGN MARKETING MANAGER Antibody Interp Negative (Negative) 04/07/18 20:11 Anti-Streptolysin O Ab Negative (NEGATIVE) 04/07/18 20:11 Blood Type O POSITIVE 04/06/18 17:01 Antibody Screen Negative 04/06/18 17:01 - Hospital Course Hospital Course: Patient is a 83 year old female with pmhx of colon ca, HTN, Rheumatoid Arthritis, and hypothyroidism that presents to the ED for nausea and vomiting, as well as for diarrhea and epigastric pain that started 3 days ago. Patient states she was going to [employer] 3 days ago in a car when she felt stomach discomfort, with burping, and vomited one time. Patient did not noticed any blood in the vomit. Patient took 1 oz of milk of magnesia at home, and state she later developed several episodes of brown, nonbloody diarrhea that lasted for 2 days. Patient states diarrhea stopped yesterday after taking peptobismol, and patient had a normal bowel movement today. Patient admits to increasing pain in right hand, due to hx of Rheumatoid arthritis. Patient says she has been taking 8 pills of Naproxen of 220mg each, every 8 hours for the past 2-3 weeks and has recently changed to taking 8 pills of Naproxen every 4 hours. Patient admits to chest pain in the middle of the sternum area. Patient denies fever, chills, headache, dizziness, changes in vision, palpations, shortness of breath, dysuria, hematuria, rash, sick contacts or loss of appetite. Patient admits to 4-5 lbs of weight loss in the past month. Patient was found to be acutely anemic with Hgb of 7.7. She was given a total of 2 units of pRBC with improvement of Hgb to 10. FOBT was positive x2. She was also started on Protonix drip. Patient was seen by her oncologist who reported that patient's baseline Hgb is 12-14. GI was consulted and performed an EGD that showed esophagitis, gastritis, gastric ulcers, hiatal hernia. Biopsy obtained during procedure was negative for H. pylori. Patient was seen by rheumatoligst who started her on Tramadol for pain. Hand X-rays were consistent with osteoarthritis. Patient had quantiferon gold blood draw. She will follow this result up as an outpatient to potentially start a DMARD. During her hospitalization, she was found to be hypertensive and started on lisinopril. holosystolic was heard on physical exam. Echo: EF 60-65%, grade I diastolic dysfunction, mild MR, mild TR. Patient has a history of colon caner. her CEA is 2.4. She has PET scan scheduled outpatient. Upon discharge, patient's Hgb remained stable around 10. Patient was feeling well. She continued to have some black stool. She will follow-up as outpatient for repeat EGD. Her vitals were stable. She was tolerating PO intake. Discharge Exam - Head Exam Head Exam: NORMOCEPHALIC - Additional Findings Additional findings: - Constitutional Appears: Non-toxic, No Acute Distress - Head Exam Head Exam: ATRAUMATIC, NORMAL INSPECTION - Eye Exam Eye Exam: EOMI, Normal appearance, PERRL - ENT Exam ENT Exam: Mucous Membranes Moist - Neck Exam Neck Exam: Normal Inspection - Respiratory Exam Respiratory Exam: B/l wheezes, NORMAL BREATHING PATTERN - Cardiovascular Exam Cardiovascular Exam: REGULAR RHYTHM, +S1, +S2, Murmur - GI/Abdominal Exam GI & Abdominal Exam: Distended, Soft. absent: Firm, Guarding, Tenderness, Rebound Additional comments: well-healed surgical scar below umbilicus from remote hernia repairs - Rectal Exam Rectal Exam: Deferred - Extremities Exam Extremities Exam: Normal Inspection. absent: Pedal Edema, Tenderness - Neurological Exam Neurological Exam: Alert, Awake, CN II-XII Intact, Oriented x3 - Psychiatric Exam Psychiatric exam: Normal Affect, Normal Mood - Skin Skin Exam: Dry, Intact, Normal Color, Warm Discharge Plan - Discharge Medications Prescriptions: Docusate [Colace] 100 mg PO DAILY #30 cap Lisinopril [Zestril] 5 mg PO DAILY #30 tab Pantoprazole [Protonix EC Tab] 40 mg PO BID #60 ect - Follow Up Plan Condition: IMPROVED Disposition: HOME/ ROUTINE Patient education suggested?: Yes Instructions: Nausea and Vomiting, Adult (DC), Nonsteroidal Antiinflammatory Drugs (NSAIDs), Docusate, Lisinopril, Pantoprazole, Tramadol Additional Instructions: Please follow-up with your primary care physician, Dr. Lott, within 3-5 days of discharge. He will monitor your blood pressure and adjust medications as needed. Please follow-up with life guard, Dr. Mayo. If your blood test for TB is negative, he will consider starting you on a medication, Leflunamide, for your arthritis. Please follow-up with pulp piler, Dr. Dowd. You will need a repeat EGD (upper endoscopy) in 1-2 weeks. Please follow-up with oncologist, Dr. Guthrie. She will go over your CT scan and PET scan results that are scheduled for next week. Do NOT take any NSAIDs. This includes, naproxen, ibuprofen, Motrin, Aleve, Advil, Celebrex, and aspirin. You will be given a prescription for Tramadol 50 mg that can be use up to 4 times daily as needed for pain. You will be given a prescription for Colace 100 mg for constipation. Take once daily (8 AM). You will be given a prescription for pantoprazole 40 mg. Take this twice daily (8AM and 8PM). You will be given a prescription for lisinopril 5 mg for blood pressure. Take once daily (8 AM). You may continue taking levothyroxine (Synthroid) as previously prescribed, before breakfast. If symptoms recur, return to the nearest emergency room. Por favor, louis un seguimiento con stone mdico de atencin primaria, el Dr. Lott, dentro de los 3-5 obrien posteriores al jyoti. l controlar stone presin arterial y ajustar los medicamentos segn sea necesario. Por favor louis un seguimiento con el reumatlogo, el Dr. Mayo. Si stone anlisis de niles para TB es negativo, l considerar comenzar a tomarle un medicamento, Leflunamide, para stone artritis. Por favor louis un seguimiento con el gastroenterlogo, Dr. Dowd. Necesitar julio EGD repetida (endoscopia superior) en 1-2 semanas. Por favor louis un seguimiento con el onclogo, el Dr. Guthrie. Wilda revisar los resultados de stone tomografa computarizada y tomografa PET que estn pro gramados para la prxima semana. NO tome ningn DAISY. [place] incluye, naproxeno, ibuprofeno, Motrin, Aleve, Advil, Celebrex y aspirina. Le darn julio receta de Tramadol 50 mg que puede usar hasta 4 veces al da segn sea necesario para el dolor. Le darn julio receta de Colace 100 mg para el estreimiento. Marco julio vez al da (8 AM). Le darn julio receta de pantoprazol 40 mg. [place] esto dos veces al da (8AM y 8PM). Le darn julio receta de lisinopril 5 mg para la presin arterial. Marco julio vez al da (8 AM). Puede continuar tomando levotiroxina (Synthroid) segn lo prescrito anteriormente, antes del desayuno. Si los sntomas se repiten, regrese a la christoph de emergencias ms cercana. Referrals: Syed Mayo MD [Staff Provider] - Bernadette Guthrie MD [Staff Provider] - Ayan Dowd MD [Staff Provider] -
--- NOTE | 2018-04-10 22:19 | CP.PCM.PN ---
Subjective - Date & Time of Evaluation Date of Evaluation: 04/10/18 Time of Evaluation: 13:20 - Subjective Subjective: patient was evaluated again today at 1:25 PM. She is still having pain and mild swelling in both hands. She was given a prescription for Voltaren gel which she will apply to the affected areas 3 times a day. She will also rece wayne a prescription for tramadol 50 mg one tablet 4 times a day as needed. Tramadol will replace morphine which she was receiving in the hospital. We are waiting for the results of a quant Top[place] on hold examination. Based on the results, we will make a decision as to the suitable DMARD for this patient. She was also instructed she will need monthly lab studies to evaluate her medical condition. Objective - Vital Signs/Intake and Output Vital Signs (last 24 hours): Temp Pulse Resp BP Pulse Ox 98.2 F 80 20 157/75 H 96 04/10/18 07:20 04/10/18 11:55 04/10/18 07:20 04/10/18 11:55 04/10/18 07:20 - Labs Labs: 04/10/18 06:40 04/10/18 06:40 PT 14.6 SECONDS (9.7-12.2) H 04/06/18 14:20 INR 1.3 04/06/18 14:20 APTT 32 SECONDS (21-34) 04/06/18 14:20 - Constitutional Appears: No Acute Distress - Head Exam Head Exam: NORMAL INSPECTION - Eye Exam Eye Exam: Normal appearance Pupil Exam: NORMAL ACCOMODATION - Neck Exam Neck Exam: Normal Inspection - Respiratory Exam Respiratory Exam: NORMAL BREATHING PATTERN - GI/Abdominal Exam GI & Abdominal Exam: Normal Bowel Sounds - Rectal Exam Rectal Exam: Deferred - Exam External exam: NORMAL EXTERNAL EXAM - Extremities Exam Extremities Exam: Tenderness - Back Exam Back Exam: NORMAL INSPECTION - Neurological Exam Neurological Exam: Oriented x3 - Psychiatric Exam Psychiatric exam: Normal Mood - Skin Skin Exam: Dry Assessment and Plan (1) Rheumatoid arthritis Status: Acute (2) Anemia Status: Acute
== END 2018-04-10 15:04 | disposition home or self-care (01) | DRG 811 ==
LOC: C.ER 13:35 → C.9E 18:36 → C.5S 23:38
PROVIDERS: ADMIT Family Medicine; ATTEND Family Medicine
PROC: 30233N1 Transfusion of Nonautologous Red Blood Cells into Peripheral Vein, Percutaneous Approach (ICD-10-PCS; 2018-04-07)
PROC: 0DB68ZX Excision of Stomach, Via Natural or Artificial Opening Endoscopic, Diagnostic (ICD-10-PCS; principal; 2018-04-08 13:20)
DX: D62 Acute posthemorrhagic anemia (principal); K25.4 Chronic or unspecified gastric ulcer with hemorrhage; K29.70 Gastritis, unspecified, without bleeding; K20.9 Esophagitis, unspecified; K44.9 Diaphragmatic hernia without obstruction or gangrene; K31.9 Disease of stomach and duodenum, unspecified; T39.395A Adverse effect of other nonsteroidal anti-inflammatory drugs [NSAID], initial encounter; I10 Essential (primary) hypertension; D18.03 Hemangioma of intra-abdominal structures; E03.9 Hypothyroidism, unspecified; M06.9 Rheumatoid arthritis, unspecified; M19.042 Primary osteoarthritis, left hand; M19.041 Primary osteoarthritis, right hand; R63.3 Feeding difficulties; R01.1 Cardiac murmur, unspecified; R60.0 Localized edema; H91.93 Unspecified hearing loss, bilateral; H35.30 Unspecified macular degeneration; Z85.038 Personal history of other malignant neoplasm of large intestine; Z87.891 Personal history of nicotine dependence; Z90.49 Acquired absence of other specified parts of digestive tract; Z80.0 Family history of malignant neoplasm of digestive organs; Z82.3 Family history of stroke

== ENCOUNTER 2018-06-03 12:21 | Outpatient (CLI) | payer MEDICARE | END 2018-06-03 12:22 | disposition home or self-care (01) | LOC: C.RADIC 12:21 | DX: R05 Cough (principal) ==

== ENCOUNTER 2018-06-28 17:50 | Emergency (ER) | payer MEDICARE ==
[2018-06-28 17:51] VITALS: BMI 29.2
--- NOTE | 2018-06-28 18:34 | C.PDOC ---
History Of Present Illness 83 y/o female pt presents to the ER c/o fall injury x3 days ago. Pt reports she fell backwards down the steps and extended her hand. Pt has no other associated sx or complaints at this time. - HPI Time Seen by Provider: 06/28/18 18:06 Chief Complaint (Nursing): Finger,Hand,&Wrist History Per: Patient History/Exam Limitations: no limitations Onset/Duration Of Symptoms: Days (x3) Past Medical History Reviewed: Historical Data, Nursing Documentation, Vital Signs Vital Signs: Last Vital Signs Temp 97.6 F 06/28/18 17:55 Pulse 73 06/28/18 17:55 Resp 18 06/28/18 17:55 BP 150/84 06/28/18 17:55 Pulse Ox 97 06/28/18 17:55 - Medical History PMH: Anemia, Arthritis, HTN, Rheumatoid Arthritis - [facility] Procedures CLOSED ENDOSCOPIC BIOPSY OF LARGE INTESTINE (09/08/12) ENDOSCOPIC BIOPSY OF RECTUM (09/08/12) EXCISION OF STOMACH, ENDO, DIAGN (04/06/18) TRANSFUSE NONAUT RED BLOOD CELLS IN PERIPH VEIN, PERC (04/06/18) Family History: States: No Known Family Hx - Social History Hx Tobacco Use: No (Former smoker--quit 9 yrs ago) Hx Alcohol Use: No Hx Substance Use: No - Immunization History Hx Tetanus Toxoid Vaccination: No Hx Influenza Vaccination: Yes Hx Pneumococcal Vaccination: Yes Review Of Systems Constitutional: Negative for: Fever, Chills, Weakness Eyes: Negative for: Redness, Other (scleral icterus) ENT: Negative for: Mouth Swelling Cardiovascular: Negative for: Chest Pain Respiratory: Negative for: Cough, Shortness of Breath Gastrointestinal: Negative for: Nausea, Vomiting, Diarrhea Genitourinary: Negative for: Dysuria, Hematuria Musculoskeletal: Positive for: Hand Pain (left wrist ). Negative for: Back Pain Skin: Negative for: Rash Neurological: Negative for: Weakness, Numbness, Dizziness Physical Exam - Physical Exam Appears: Well, Non-toxic, No Acute Distress Skin: Normal Color, Warm, No Rash Head: Normacephalic, No Tenderness, No Swelling, Abrasion (with hematoma to occipital scalp ), No Laceration, No Other (skull depression ) Eye(s): bilateral: Normal Inspection (no scleral icterus ), PERRL, EOMI Ear(s): Bilateral: Normal (no drainage ) Nose: Normal Oral Mucosa: Moist Throat: Normal (no inflammation or injection), No Exudate, Other (patent airway ) Neck: Normal ROM, No Midline Cervical Tenderness, No Paracervical Tenderness, Supple Chest: Symmetrical, No Deformity, No Tenderness, No Ecchymosis Cardiovascular: Rhythm Regular Respiratory: No Accessory Muscle Use, Other (normal inspiration effort ) Gastrointestinal/Abdominal: Soft, No Distention Back: No CVA Tenderness, No Vertebral Tenderness, Decreased ROM, Other (ambulating with steady gait ) Extremity: Normal ROM, Capillary Refill (delayed on 4th adn 5th digit of left hand compared to 1-3 digits. ), Swelling (in wrist area ), Other (multiple abrasion on left hand and several small abrasions on right hand; left hand is colder than right hand and proximal of hand; ecchymosis to 4th and 5th digit ) Pulses: Left Radial: Normal, Right Radial: Normal Neurological/Psych: Oriented x3, Other (cranial nerves are grossly intact; able to answer questions and follow commands well) ED Course And Treatment O2 Sat by Pulse Oximetry: 97 (RA) Pulse Ox Interpretation: Normal Medical Decision Making Medical Decision Making: Plans: -- blood work -- chem labs Due to questionable blood flow: CT for upper extremity and head are ordered splint is placed on left wrist and sling Disposition - Disposition Forms: [employer] ([place]) - PA / INVESTOR RELATIONS COORDINATOR / Resident Statement MD/ has reviewed & agrees with the documentation as recorded. - Scribe Statement The provider has reviewed the documentation as recorded by the Rojelio Guerra Do All medical record entries made by the Scribe were at my direction and personally dictated by me. I have reviewed the chart and agree that the record accurately reflects my personal performance of the history, physical exam, medical decision making, and the department course for this patient. I have also personally directed, reviewed, and agree with the discharge instructions and disposition.
[2018-06-28 18:46] LABS: BASO # 0.1 K/uL (0.0-0.2); EOS # 0.2 K/uL (0.0-0.7); EOS % 2.2 % (0.0-4.0); HEMOGLOBIN 10.9 g/dL (11.0-16.0); LYMPH # 1.8 K/uL (1.0-4.3); LYMPH % 25.1 % (20.0-40.0); MEAN CELL VOLUME 89.5 fL (81.0-99.0); MEAN CORPUSCULAR HEMOGLOBIN 28.7 pg (27.0-31.0); MEAN CORPUSCULAR HGB CONC 32.1 g/dL (33.0-37.0); MEAN PLATELET VOLUME 8.3 fL (7.2-11.7); MONO # 0.7 K/uL (0.0-0.8); NEUT # 4.5 K/uL (1.8-7.0); NEUT % 61.7 % (50.0-75.0); NRBC % 0.1 % (0.0-2.0); RBC 3.8 Mil/uL (3.80-5.20); RED CELL DISTRIBUTION WIDTH 16.6 % (11.5-14.5); WHITE BLOOD COUNT 7.3 K/uL (4.8-10.8)
[2018-06-28 19:00] LABS: BLOOD UREA NITROGEN 8 mg/dL (7-17); GFR NON-AFRICAN AMERICAN > 60
[2018-06-28 19:01] LABS: CALCIUM 8.9 mg/dl (8.6-10.4)
[2018-06-28] MEDS ORDERED: Iodixanol 320 MG/ML 100 ML BOTTLE IV ONE (19:55)
--- NOTE | 2018-06-28 20:10 | C.PDOC ---
History Of Present Illness 83 y/o female pt presents to the ER c/o fall injury x3 days ago. Pt reports she fell backwards down the steps and extended her hand. she admits to bumping her head but denies LOC. she states her head has not bothered her since the fall but the left wrist is very painful. Pt has no other associated sx or complaints at this time. Time Seen by Provider: 06/28/18 18:06 Chief Complaint (Nursing): Finger,Hand,&Wrist History Per: Patient History/Exam Limitations: no limitations Onset/Duration Of Symptoms: Days (x3) Current Symptoms Are (Timing): Still Present Past Medical History Reviewed: Historical Data, Nursing Documentation, Vital Signs Vital Signs: Last Vital Signs Temp 97.6 F 06/28/18 17:55 Pulse 73 06/28/18 17:55 Resp 18 06/28/18 17:55 BP 150/84 06/28/18 17:55 Pulse Ox 97 06/28/18 17:55 - Medical History PMH: Anemia, Arthritis, HTN, Rheumatoid Arthritis - [facility] Procedures CLOSED ENDOSCOPIC BIOPSY OF LARGE INTESTINE (09/08/12) ENDOSCOPIC BIOPSY OF RECTUM (09/08/12) EXCISION OF STOMACH, ENDO, DIAGN (04/06/18) TRANSFUSE NONAUT RED BLOOD CELLS IN PERIPH VEIN, PERC (04/06/18) Family History: States: No Known Family Hx - Social History Hx Tobacco Use: No (Former smoker--quit 9 yrs ago) Hx Alcohol Use: No Hx Substance Use: No - Immunization History Hx Tetanus Toxoid Vaccination: No Hx Influenza Vaccination: Yes Hx Pneumococcal Vaccination: Yes Review Of Systems Constitutional: Negative for: Fever, Chills, Weakness Eyes: Negative for: Redness, Other (scleral icterus) ENT: Negative for: Mouth Swelling Cardiovascular: Negative for: Chest Pain Respiratory: Negative for: Cough, Shortness of Breath Gastrointestinal: Negative for: Nausea, Vomiting Genitourinary: Negative for: Dysuria, Hematuria Musculoskeletal: Positive for: Hand Pain (left ). Negative for: Back Pain Neurological: Negative for: Weakness, Numbness, Dizziness Physical Exam - Physical Exam Appears: Well, Non-toxic, No Acute Distress Skin: Normal Color, Warm, No Rash Head: No Atraumatic (small hematoma to occipital scalp), Normacephalic Eye(s): bilateral: Normal Inspection (no scleral icterus ), PERRL, EOMI Ear(s): Bilateral: Normal (no drainage) Nose: Normal Oral Mucosa: Moist Throat: Normal (no swelling or injection ), No Exudate, Other (patent airway ) Neck: Normal ROM, Supple Chest: Symmetrical Cardiovascular: Rhythm Regular Respiratory: No Accessory Muscle Use, Other (normal inspiration effort ) Gastrointestinal/Abdominal: Soft, No Distention Back: No CVA Tenderness, No Vertebral Tenderness Extremity: Normal ROM, Capillary Refill (delayed on 4th and 5th digit of left hand compared to 1-3 digits), Swelling (in wrist area), Other (multiple abrasion on left hand and several small abrasions on right hand; left hand is colder than right hand and proximal of hand; ecchymosis to 4th and 5th digit) Pulses: Left Radial: Normal (2+), Right Radial: Normal (2+) Neurological/Psych: Oriented x3, Other (cranial nerves are grosssly intact; patient is able to answer questions and follow commands well ) ED Course And Treatment - Laboratory Results Result Diagrams: 06/28/18 18:37 06/28/18 18:37 O2 Sat by Pulse Oximetry: 97 (RA) Pulse Ox Interpretation: Normal - CT Scan/US head Other Rad Studies (CT/US): Read By Radiologist, Radiology Report Reviewed CT/US Interpretation: Name:RAJESH SANCHEZ Exam Date:Jun 28, 2018 7:28:19 PM EST. Modality Type:CT\SR. Description:CT - BRAIN. Gender:F Laterality:Not applicable. :36 Referring Ph ysician:Clifford Roman PAC. EXAM: CT Head without Intravenous Contrast. CLINICAL HISTORY: Trauma, fall. TECHNIQUE: Axial computed tomography images of the head/brain without intravenous contrast. 0.00 mGy-cm. COMPARISON: None provided. FINDINGS: BRAIN. No acute intraparenchymal hemorrhage. No mass lesion. No CT evidence for acute territorial infarct. No midline shift or extra- axial collections. VENTRICLES: No hydrocephalus. ORBITS: The orbits are unremarkable. SINUSES AND MASTOIDS: The paranasal sinuses and mastoid air cells are clear. BONES: No fracture. SOFT TISSUES: Unremarkable. IMPRESSION: No acute intracranial abnormality. . Electronically signed on Jun 28, 2018 8:04:53 PM EST by: Arnaldo Torrez M.D., Certified by ABR, Diagnostic Radiology upper ext. CT Other Rad Studies (CT/US): Read By Radiologist, Radiology Report Reviewed CT/US Interpretation: Name:RAJESH SANCHEZ Exam Date:Jun 28, 2018 7:40:29 PM EST. Modality Type:CT\SR. Description:CT - UPPER ARM. Gender:F Laterality:Not applicable. :36 Referring Physician:DAVID Arriaga. EXAM: CT left, with IV contrast. CLINICAL HISTORY: Left hand/ wrist Pain due to fall. TECHNIQUE: Axial computed tomography images of the left hand with intravenous contrast. 0.00 mGy-cm. CONTRAST: With. COMPARISON: Comparison is made to prior radiographic evaluation of the left wrist performed earlier the same date. FINDINGS: BONES: Subtle transverse, partially impacted fracture involving the distal radial metaphysis is faintly identified. No aggressive appearing osseous lesion. No periosteal reaction evident. JOINTS: The joint spaces appear within normal limits. No dislocation. SOFT TISSUES: No radiopaque foreign body is seen. No soft tissue fluid collection. IMPRESSION: 1. Subtle transverse partially impacted fracture of the distal left radial metaphysis. . Electronically si gned on Jun 28, 2018 8:35:37 PM EST by: Clifford Bell M.D., LAURA Certified By [facility]BR & [facility]. Fellowship Trained MRI and CT Specialist. Medical Decision Making Medical Decision Making: Plans: -- blood work -- chem labs Due to questionable blood flow: CT for upper extremity and head are ordered arterial flow normal to left extremity. 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 - Scribe Statement The provider has reviewed the documentation as recorded by the Rojelio Guerra Do All medical record entries made by the Rojelio were at my direction and personally dictated by me. I have reviewed the chart and agree that the record accurately reflects my personal performance of the history, physical exam, medical decision making, and the department course for this patient. I have also personally directed, reviewed, and agree with the discharge instructions and disposition.
[2018-06-28 21:49] VITALS: BP 136/78; PULSE 72; RESP 16; TEMP 97.7
--- NOTE | 2018-06-29 10:35 | CT ---
Date of service: 06/28/2018 PROCEDURE: CT HEAD WITHOUT CONTRAST. HISTORY: Trauma COMPARISON: None available. TECHNIQUE: Axial computed tomography images were obtained through the head/brain without intravenous contrast. Radiation dose: Total exam DLP = 967.83 mGy-cm. This CT exam was performed using one or more of the following dose reduction techniques: Automated exposure control, adjustment of the mA and/or kV according to patient size, and/or use of iterative reconstruction technique. FINDINGS: HEMORRHAGE: No intracranial hemorrhage. BRAIN: Mild chronic periventricular white matter ischemic changes seen extending peripherally into the deep white matter both cerebral hemispheres... Questionable tiny lacunar type infarct versus dilated perivascular space right inferolateral basal ganglia. Vumf-jy-dagepygn generalized volume loss. Tiny calcification seen along the cortical surface right superior frontal lobe. Mild vascular calcifications both carotid siphons. VENTRICLES: No obstructive hydrocephalus. CALVARIUM: Unremarkable. PARANASAL SINUSES: Unremarkable as visualized. No significant inflammatory changes. MASTOID AIR CELLS: Unremarkable as visualized. No inflammatory changes. OTHER FINDINGS: Changes of bilateral cataract surgery. IMPRESSION: No acute intracranial hemorrhage. Mild chronic white matter ischemic changes. Mild to moderate generalized volume loss. Tiny calcification along the cortical surface right superior frontal lobe.
--- NOTE | 2018-06-29 16:32 | RAD ---
PROCEDURE: Left Hand Radiographs. HISTORY: injury COMPARISON: Comparison made with prior radiographs left hand 04/09/2018 and concurrent radiographs left wrist. FINDINGS: BONES: Normal. No fracture. JOINTS: Moderate to fairly significant multi articular degenerative osteoarthritis again noted consistent with primary osteoarthritis... Changes most notably affect the DIP and PIP joints. Degenerative changes also noted at the greater multangular 1st metacarpal junction as well. SOFT TISSUES: Normal. OTHER FINDINGS: None. IMPRESSION: No evidence of acute displaced fracture nor dislocation. 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
--- NOTE | 2018-06-29 16:36 | RAD ---
Date of service: 06/28/2018 PROCEDURE: Left Wrist Radiographs. HISTORY: injury COMPARISON: None. FINDINGS: BONES: No definitive evidence of acute displaced fracture nor dislocation JOINTS: Multi articular osteoarthritis again noted which most notably affect the DIP greater than PIP joints. In addition, multi articular degenerative changes of the wrist most significantly affecting the greater multangular 1st metacarpal articulation. Findings are consistent with primary osteoarthritis SOFT TISSUES: Normal. OTHER FINDINGS: None. IMPRESSION: No definitive evidence of acute displaced fracture nor dislocation. Multi articular osteoarthritis again noted which most notably affect the DIP greater than PIP joints. In addition, multi articular degenerative changes of the wrist most significantly affecting the greater multangular 1st metacarpal articulation. Findings are consistent with primary osteoarthritis
--- NOTE | 2018-06-30 08:32 | CT ---
Date of service: 06/28/2018 PROCEDURE: HISTORY: arterial compromise? COMPARISON: TECHNIQUE: FINDINGS: Nondisplaced impaction fracture of the distal radius. No other fracture or dislocation deformity. No gross soft tissue abnormality. Vascular structures notified identified,, optimal assessment cannot be performed on arterial compromise due to technical limitations. IMPRESSION: Subtle impaction fracture distal radius. Cannot assess vascular structures adequately.
[2018-06-30 18:37] VITALS: O2SAT 97
== END 2018-06-28 21:48 | disposition home or self-care (01) ==
LOC: C.ER 17:50
DX: S52.592A Other fractures of lower end of left radius, initial encounter for closed fracture (principal); W10.9XXA Fall (on) (from) unspecified stairs and steps, initial encounter
CPT/HCPCS: 29125; 70450; 73110; 73130; 73201; 80048; 85025; 99284; Q9967

== ENCOUNTER 2018-07-03 07:14 | Day surgery (SDC) | payer MEDICARE ==
[2018-07-03 07:55] VITALS: BMI 23.8
[2018-07-03] MEDS ORDERED: Propofol 10 mg/ml Inj (20 ML) ONE (09:39)
--- NOTE | 2018-07-03 09:41 | CP.SDSHP ---
Same Day Surgery H & P - History Proposed Procedure: endoscopy Pre-Op Diagnosis: ulcer, gastritis - Previous Medical/Surgical History Cardiac: Hypertension - Allergies Allergies: Allergies No Known Allergies Allergy (Verified 06/28/18 18:02) - Physical Exam Vital Signs: Vital Signs 07/03/18 07:46 Temperature 97.2 F L Pulse Rate 77 Respiratory 14 Rate Blood Pressure 146/68 O2 Sat by Pulse 100 Oximetry Mental Status: Alert & Oriented x3 Heart: WNL Lungs: WNL GI: WNL - {Optional Preform as Required} Abdomen: WNL - Impression Impression: ulcer, gastritis Pt. Evaluated Today:Candidate for Anesthesia & Procedure: Yes - Date & Time Date: 07/03/18 Time: 09:30 Short Stay Discharge - Short Stay Discharge Admitting Diagnosis/Reason for Visit: GASTRIC ULCER Disposition: HOME/ ROUTINE
[2018-07-03] MEDS ORDERED: Lactated Ringer's 1,000 ML IV ONE (09:43)
[2018-07-03 11:34] VITALS: TEMP 97
[2018-07-03 11:41] VITALS: RESP 18
[2018-07-03 11:51] VITALS: BP 139/68; PULSE 78; O2SAT 100
== END 2018-07-03 11:30 | disposition home or self-care (01) ==
LOC: C.ENDO 07:14
PROVIDERS: ATTEND Internal Medicine Gastroenterology
DX: K25.9 Gastric ulcer, unspecified as acute or chronic, without hemorrhage or perforation (principal); K20.9 Esophagitis, unspecified; K31.1 Adult hypertrophic pyloric stenosis; K29.70 Gastritis, unspecified, without bleeding
CPT/HCPCS: 43239; 88305; 88342; J2704; J7120

== ENCOUNTER 2018-07-23 15:15 | Outpatient (CLI) | payer MEDICARE | END 2018-07-23 15:16 | disposition home or self-care (01) | LOC: C.RADIC 15:15 | DX: S52.515A Nondisplaced fracture of left radial styloid process, initial encounter for closed fracture (principal) ==

== ENCOUNTER 2018-08-14 07:31 | Day surgery (SDC) | payer MEDICARE ==
[2018-08-14 08:24] VITALS: BMI 24.2
[2018-08-14] MEDS ORDERED: Lactated Ringer's 1,000 ML IV ONE (09:47)
--- NOTE | 2018-08-14 09:48 | CP.SDSHP ---
Same Day Surgery H & P - History Proposed Procedure: endoscopy Pre-Op Diagnosis: ulcer - Previous Medical/Surgical History Cardiac: Hypertension - Allergies Allergies: Allergies No Known Allergies Allergy (Verified 08/14/18 08:20) - Physical Exam Vital Signs: Vital Signs 08/14/18 08:09 Temperature 97.8 F Pulse Rate 71 Respiratory 16 Rate Blood Pressure 156/59 H O2 Sat by Pulse 100 Oximetry Mental Status: Alert & Oriented x3 Neuro: WNL Heart: WNL Lungs: WNL GI: WNL - {Optional Preform as Required} Abdomen: WNL - Impression Impression: ulcer Pt. Evaluated Today:Candidate for Anesthesia & Procedure: Yes - Date & Time Date: 08/14/18 Time: 09:30 Short Stay Discharge - Short Stay Discharge Admitting Diagnosis/Reason for Visit: ANEMIA Disposition: HOME/ ROUTINE
[2018-08-14] MEDS ORDERED: Propofol 10 mg/ml Inj (20 ML) ONE (09:49)
[2018-08-14] MEDS ORDERED: Etomidate 20 mg/10ml Inj IV ONE (09:49)
[2018-08-14 10:32] VITALS: TEMP 69
[2018-08-14 11:34] VITALS: BP 161/71; PULSE 69; RESP 12; O2SAT 99
== END 2018-08-14 11:33 | disposition home or self-care (01) ==
LOC: C.ENDO 07:31
PROVIDERS: ATTEND Internal Medicine Gastroenterology
DX: K29.70 Gastritis, unspecified, without bleeding (principal); D64.9 Anemia, unspecified; K31.89 Other diseases of stomach and duodenum
CPT/HCPCS: 43239; 88305; 88342; J2001; J2704; J7120

== ENCOUNTER 2018-08-15 09:06 | Outpatient (CLI) | payer MEDICARE | END 2018-08-15 09:07 | disposition home or self-care (01) | LOC: C.RADH 09:06 ==